=== PATIENT | female | born 1975 | race Caucasian/White ===

== ENCOUNTER 2025-04-06 19:17 | Emergency (ER) | payer MEDICAID, SELFPAY ==
--- OUTSIDE RECORDS SUMMARY | 2024-01-28 10:45 | XMS_ITS ---
Author Organization [facility] [place] Address [address] [address] Care Team Providers Care Daub Color Mixer Name Role Phone BEAR OSORIO Unavailable [phone] Encounters Encounter Location Date Provider Diagnosis [facility] [address] [place] [address] 01/28/2024 BEAR OSORIO Plan Of Treatment No Information Progress Notes * LETICIAVanessa SO ADOB: [birth year] (49 yo F)Acc No.[id number]:01/28/2024 Patient: Vanessa MENDOZA Provider: Rafiq OSORIO M.D., F.A.C.P. :1975 A ge:48 Y S ex:Female Date:01/28/2024 Address:[address] [place], [place] [id number] Subjective: * Chief Complaints: * * Medical History: Objective: * Vitals: Assessment: Plan: * Treatment: * * Electronic signature of YANETH OSORIO MD on 04/06/2025 at 08:05 PM EDT Sign off status: Pending * Provider: Rafiq OSORIO M.D., F.A.C.P. Date: 01/28/2024 Generated for Allan kirkpatrick/Lyndsey/eTransmitting on: 04/06/2025 08:05 PM EDT
--- OUTSIDE RECORDS SUMMARY | 2024-08-24 07:00 | XMS_ITS ---
Author Organization [facility] [place] Address [address] [place] [address] Care Team Providers Care Lower In Supervisor Name Role Phone LUIS GODINEZ Unavailable [phone] REASON FOR VISIT [facility] discharge Encounters Encounter Location Date Provider Diagnosis [facility] [address] [place] [address] 08/24/2024 LUIS GODINEZ Plan Of Treatment No Information Progress Notes * Vanessa LAI ADOB: [birth year] (49 yo F)Acc No.[id number]:08/24/2024 Progress Note Patient: Cherelle MENDOZAan Jose Angel Appointment Provider: Marian GODINEZ APRN :1975 A ge:48 Y S ex:Female Date:08/24/2024 Address:[address] [place], [place] [id number] Subjective: * Chief Complaints: * 1 . [facility] discharge. * Medical History: Objective: * Vitals: Assessment: Plan: * Treatment: * * Electronic signature of PAMELA GODINEZ APRN on 04/06/2025 at 08:05 PM EDT Sign off status: Pending * Appointment Provider: Marian GODINEZ APRN Date: 0 08/24/2024 Generated for Printing/Faxing/eTransmitting on: 0 04/06/2025 08:05 PM EDT
[2025-04-06 19:38] VITALS: BP 129/74; PULSE 86; RESP 20; TEMP 36.5; O2SAT 100; BMI 18.3
--- NOTE | 2025-04-06 19:52 | ECG_ITS ---
APPROVED REPORT Exam: Resting ECG HR:76 bpm ECG Measurements Heart Rate 76 AXES MS 157 P 84 QRSd 80 QRS 104 QT 371 T 66 QTc 402 Conclusion SINUS RHYTHM RIGHT AXIS DEVIATION [QRS AXIS > 100] ABNORMAL ECG UNCONFIRMED REPORT Normal sinus rhythm. No ST elevation or depression. QTc normal at 402 Electronically signed by : ABISAI MARLEY, 04/07/2025 00:55:50
--- NOTE | 2025-04-06 20:00 | PC.NURSE ---
attempt made in triage to straight stick patient for labwork. attempt failed.
--- OUTSIDE RECORDS SUMMARY | 2025-04-06 20:06 | XMS_ITS | Referral Summary ---
Author Organization [employer] ([place], [place], [place], [place]) Address [address] [place] [address] Care Team Providers Care Tailer In Name Role Phone [facility] Primary Care Provider Allergies Active Allergy Reactions Criticality Noted Date Comments Hydrocodone 03/09/2023 Patient tolerated morphine on 08/13/2024. Ibuprofen 04/15/2014 Medications No known medications Active Problems Problem Noted Date Diagnosed Date Chronic obstructive pulmonary disease 08/14/2024 History of drug abuse 08/14/2024 Breast cancer 08/14/2024 Abscess of right forearm 08/13/2024 Right arm pain 05/06/2023 Social History Tobacco Use Types Packs/Day Years Used Date Smoking Tobacco: Every Day Cigarettes 0.5 25 Smokeless Tobacco: Never Tobacco Cessation:Ready to Q uit: Not Asked; Counseling Given: Not Answered Alcohol Use Standard Drinks/Week Comments Never 0 (1 standard drink = 0.6 oz pur e alcohol) Utilities Answer Date Recorded In the past 12 months, has t he electric, gas, oil, or water company threatened to shut off services in your home? No 08/13/2024 Interpersonal Safety Answer Date Record ed How often does anyone, elmo ennis family and friends, physically hurt you? Never 08/13/2024 How often does anyone, elmo ennis family and friends, insult or talk down to you? Never 08/13/2024 How often does anyone, elmo ennis family and friends, threaten you with harm? Never 08/13/2024 How often does anyone, elmo ennis family and friends, scream or curse at you? Never 08/13/2024 Housing Stability Answer Date Recorded What is your living situation today? [facility] place to live 08/13/[address] you li ve. Do you have problems with any of the following? None of the above 08/13/2024 Food Insecurity Answer Date Recorded Within the past 12 months, y ou worried that your food would run out before you got money to buy more. Never true 08/13/2024 Within the past 12 months, t he food you bought just didn't last and you didn't have money to get more. Never true 08/13/2024 Transportation Needs Answer Date Record ed In the past 12 months, has l ack of reliable transportation kept you from medical appointments, meetings, work or from getting things needed for daily living? No 08/13/2024 Financial Resource Strain Answer Date R ecorded How hard is it for you to pa y for the very basics like food, housing, medical care, and heating? Would you say it is: Not hard at all 08/13/2024 Employment Answer Date Recorded Do you want help finding or keeping work or a job? I do not need or want help 08/13/2024 Family and Community Support Answer Sylvester e Recorded If for any reason you need h elp with day-to-day activities such as bathing, preparing meals, shopping, managing finances, etc., do you get the help you need? I get all the help I need 08/13/2024 Feeling Lonely or Isolated 0 08/13 Educational Attainment Answer Date Desmond rded Do you speak a language other than [place] at [facility]? No 08/13/2024 Do you want help with school or training? For example, starting or completing job training or getting a high school diploma, GED or equivalent. No 08/13/2024 Physical Activity Answer Date Recorded Number of minutes of exercise per week 0 08/13/2024 Self Management Answer Date Recorded Because of a physical, menta l, or emotional condition, do you have serious difficulty concentrating, remembering, or making decisions? (5 years or older) No 08/13/2024 Because of a physical, menta l, or emotional condition, do you have difficulty doing errands alone such as visiting a doctor's office or shopping? (15 years or older) No 08/13/2024 Substance Use Answer Date Recorded How many times in the past y ear have you used prescription drugs for non-medical reasons? Daily or Almost Daily 08/13/2024 How many times in the past y ear have you used illegal drugs? Daily or Almost Daily 08/13/2024 Mental Health Answer Date Recorded Calculation of above two rows 0 Comments Unknown Sex and Gender Information Value Date Recorded Sex Assigned at Not on file Legal Sex Female 6:48 PM CDT Gender Identity Not on file Sexual Orientation Not on file Last Filed Vital Signs Vital Sign Reading Time Taken Comments Blood Pressure 129/84 08/14/2024 11:35 AM EST Pulse 89 08/14/2024 11:35 AM EST Temperature 36.8 C (98.2 F) 08/14/2024 11:35 AM EST Respiratory Rate 18 08/14/2024 11:35 AM EST Oxygen Saturation 96% 08/14/2024 11:35 AM EST Inhaled Oxygen Concentration - - Weight 55.3 kg (122 lb) 08/13/2024 1:38 PM EST Height 162.6 cm (5' 4 ) 08/13/2024 1:38 PM EST Body Mass Index 20.94 08/13/2024 1:38 PM EST Plan of Treatment Not on file Insurance [employer] [facility] [place] [address] Advance Directives For more information, please contact: [phone] * Full Code (Latest Code Status on File) Date Activated Date Inactivated Comments 08/13/2024 4:16 PM 08/14/2024 2:25 PM Care Teams Tailer In Relationship Specialty Start Date End Date [facility] [place] [address] PCP - General 08/13/24
--- OUTSIDE RECORDS SUMMARY | 2025-04-06 20:06 | XMS_ITS ---
Author Organization [facility] Address [address] [place], [place] [id number] Care Team Providers Care Cascara Bark Cutter Name Role Phone Joyce Arambula MD Primary Care Provider [phone] Max Joiner RN Unavailable Unavailable Hepatitis C Program Status:Active (Active) Start date:10/09/2024 Enrollment date:10/09/2024 Enrollment reason:HCV Continued Care and Services Coordination
--- OUTSIDE RECORDS SUMMARY | 2025-04-06 20:06 | XMS_ITS | Clinical Summary ---
Author Organization Healthcare Address [address] [place] [address] Care Team Providers Care Fiberglass Auto Body Repairer Name Role Phone Joyce Arambula MD Primary Care Provider [phone] Max Joiner RN Unavailable Unavailable Allergies Active Allergy Reactions Criticality Noted Date Comments Acetaminophen Other - please document in the comment field Low 10/13/2024 Reports shortness of breath and anaphylaxis but had tylenol multiple times during admission w/o rxn Hydrocodone Other - please document in the comment field Low 03/09/2023 Patient tolerated morphine on 08/13/2024. Hydrocodone-Acetaminoph en Shortness of breath High 06/02/2007 pt stated she had breathing problems Ibuprofen Other - please document in the comment field Low 04/15/2014 Naproxen Other - please document in the comment field Low 10/13/2024 According to Patient facial edema and difficulty getting her breath Of note - had naproxen during admission w/o reaction. Medications naloxone (Narcan) 4 mg/0.1 mL nasal spray 1. Give 1 spray in nostril for no/slow breathing or cannot wake after opioid use 2. Call 911 3. Repeat in other nostril if symptoms continue 2 each 11 5 Active folic acid (Folvite) 1 MG tablet Take 1 tablet (1 mg) by mouth daily. 30 tablet 5 Active gabapentin (Neurontin) 100 MG capsule Take 2 capsules (200 mg) by mouth in the morning and 2 capsules (200 mg) in the evening and 2 capsules (200 mg) before bedtime. 10 capsule 5 Active ondansetron ODT (Zofran-ODT) 4 MG disintegrating tablet Take 1 tablet (4 mg) by mouth every 6 hours as needed for nausea or vomiting. 20 tablet 5 Active thiamine (Vitamin B-1) 100 MG tablet Take 1 tablet (100 mg) by mouth daily. 30 tablet 5 Active sofosbuvir-velpata svir (Epclusa) 400-100 MG tabletIndications: Chronic hepatitis C without hepatic coma (CMS/HCC) Take 1 tablet by mouth daily. 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 No 10/11/2024 Within the last year, have y ou been humiliated or emotionally abused in other ways by your partner or ex-partner? No Within the last year, have y ou been kicked, hit, slapped, or otherwise physically hurt by your partner or ex-partner? No 10/11/2024 Within the last year, have y ou been raped or forced to have any kind of sexual activity by your partner or ex-partner? No 10/11/2024 Overall Financial Resource Strain (CARDIA) Answe r Date Recorded How hard is it for you to pa y for the very basics like food, housing, medical care, and heating? Somewhat hard 10/11/2024 Hunger Vital Sign Answer Date Recorded Within the past 12 months, y ou worried that your food would run out before you got the money to buy more. Never true 10/12/19 25 Within the past 12 months, t he food you bought just didn't last and you didn't have money to get more. Never true 10/11/2024 PRAPARE - Transportation Answer Date Re corded In the past 12 months, has l ack of transportation kept you from medical appointments or from getting medications? Yes 10/02 In the past 12 months, has l ack of transportation kept you from meetings, work, or from getting things needed for daily living? Yes 10/11/2024 Housing Stability Vital Sign Answer Sylvester e Recorded In the last 12 months, was t here a time when you were not able to pay the mortgage or rent on time? Yes 10/11/2024 In the past 12 months, how m any times have you moved where you were living? 1 10/11/2024 At any time in the past 12 m [facility], were you homeless or living in a penitentiary (including now)? No 10/11/2024 Utilities Answer Date Recorded In the past 12 months has th e electric, gas, oil, or water company threatened to shut off services in your home? No 10/11/2024 Comments No Sex and Gender Information Value Date Recorded Sex Assigned at Not on file Legal Sex Female 8:35 PM EDT Gender Identity Not on file Sexual Orientation Not on file Last Filed Vital Signs Vital Sign Reading Time Taken Comments Blood Pressure 113/74 10/27/2024 3:13 PM EDT Pulse 88 10/27/2024 3:13 PM EDT Temperature 36.7 C (98 F) 10/18/2024 11:15 AM EDT Respiratory Rate 18 10/18/2024 11:15 AM EDT Oxygen Saturation 99% 10/27/2024 3:13 PM EDT Inhaled Oxygen Concentration - - Weight 59 kg (130 lb) 10/27/2024 3:13 PM EDT Height 165.1 cm (5' 5 ) 10/27/2024 3:13 PM EDT Body Mass Index 21.63 10/27/2024 3:13 PM EDT Plan of Treatment Upcoming Encounters Date Type Department Care Team (Late st Contact Info) Description 04/11/2025 12:40 PM EDT [facility] Visit [facility] [address] [place] [phone] Health Maintenance Due Date Last Done Comments [facility]-Depression Screening 1975 [facility]-/Child/Adol SDOH Screenings 1975 [facility]-Hepatitis A Vaccines (1 of 2 - Risk 2-dose series) 1993 [facility]-Hepatitis B Vaccines (1 of 3 - 19+ 3-dose series) 1993 [facility]-Pneumococcal Vaccine: 50 + Years (2 of 2 - PCV) 08/20/2001 08/20/2000 CT Colonography 2019 Colonoscopy 2019 FIT-DNA 2019 FIT 2019 FOBT 2019 Sigmoidoscopy 2019 [facility]-Colorectal Cancer Screening 2019 [facility]-DTaP,Tdap,and Td Vaccine s (2 - Td or Tdap) 01/24/2024 01/23/2014 [id number] Vaccine (1 - 20 24-25 season) 2024 [facility]-Lung Cancer Screening 2024 [facility]-Zoster Vaccines (1 of 2) 2024 [facility]-Influenza Vaccine (#1) 2025 [facility]- SDOH Screenings 04/13/2025 [facility]-Adult SDOH Screenings 04/13/2025 10/11/2024 [facility]-Cervical Cancer Screening Discontinued [facility]-HPV/Cotest Discontinued 08/16/1996 [facility]-Pap Smear Discontinued 08/16/1996 [facility]-HIV Screening Completed 10/09/2024 HPV Vaccines Aged Out No longer eligi ble based on patient's age to complete this topic [facility]-HIB Vaccines Aged Out No longer e ligible based on patient's age to complete this topic [facility]-IPV Vaccines Aged Out No longer e ligible based on patient's age to complete this topic [facility]-Rotavirus Vaccines Aged Out No lo nger eligible based on patient's age to complete this topic Goals Goal Patient Goal Type Associated Problems Recent Progress Patient-Stated? Author Patient will demonstrate correct performance of HEP to increase wrist ROM within 1 therapy visits. Occupational Therapy No Gagan Anderson Procedures Procedure Name Priority Date/Time Associated Diagnosis Comments CBC W/O DIFFERENTIAL Routine 03/29/2025 12:44 PM EDT Chronic hepatitis C without hepatic coma (CMS/HCC) COMPREHENSIVE METABOLIC PANEL, PLASMA Routine 03/29/2025 12:44 PM EDT Chronic hepatitis C without hepatic coma (CMS/HCC) HEPATITIS B VIRUS (HBV) QUANTITATIVE PCR Routine 03/29/2025 12:44 PM EDT Chronic hepatitis C without hepatic coma (CMS/HCC) HEPATITIS C VIRUS (HCV) QUANTITATIVE PCR Routine 03/29/2025 12:44 PM EDT Chronic hepatitis C without hepatic coma (CMS/HCC) PROTHROMBIN TIME(PT) / INR Routine 03/29/2025 12:44 PM EDT Chronic hepatitis C without hepatic coma (CMS/HCC) ED HIV 1/2 ANTIBODY/ANTIGEN SCREEN WITH REFLEX TO HIV I/II DIFFERENTIATION STAT 10/09/2024 1:46 PM EST CYTO DATA CONVERSION Routine 08/16/1996 12:00 AM EST from Last 3 Months or Most Recently Relevant to Health Maintenance Results * Hepatitis B Virus (HBV) Quantitative PCR (03/29/2025 12:44 PM EDT) Hepatitis B Virus (HBV) Quantitative Interpretation Not Detected Not Detected 03/31/2025 7:33 AM EDT [facility] Blood Venous blood specimen / Unknown Venipuncture / Unknown 03/29/2025 12:44 PM EDT 03/29/2025 12:45 PM EDT Narrative [facility] - 03/31/2025 7:33 AM EDT The [employer] M2000 HBV Assay is a Real Time in vitro nucleic acid amplification of Hepatitis B Virus (HBV) DNA in human serum in HBV infected individuals. It is intended to quantify HBV in patients who are infected with this virus. The dynamic range for this test is 1.0 to 9.0 log10 and/or 10 to 1,000,000,000 IU/mL. The limit of detection (LOD) for this assay is 10 IU/mL. This assay is FDA approved for clinical use. us Missael Child APRN, TORO LAB BLOOD ORDERABLES F inal Result Performing Organization Address [facility] Co de Phone Number [facility] [address] [place] [address] * Hepatitis C Virus (HCV) Quantitative PCR (03/29/2025 12:44 PM EDT) Pathologist [facility] Hepatitis C Virus (HCV) Quantitative Interpretation Not Detected Not Detected. 03/31/2025 7:15 AM EDT [facility] Blood Venous blood specimen / Unknown Venipuncture / Unknown 03/29/2025 12:44 PM EDT 03/29/2025 12:45 PM EDT Narrative [facility] - 03/31/2025 7:15 AM EDT The [employer] M2000 HCV test is a Real Time in vitro nucleic acid amplification test for the quantitation of Hepatitis C Viral (HCV) RNA in human serum in HCV-infected individuals. It is intended for use as an aid in the management of HCV-infected individuals undergoing anti-viral therapy. The dynamic range for this test is log10 = 1.08 to 8.00 and/or 12 to 100,000,000 IU/mL. The limit of detection (LOD) for this assay is 12 IU/mL and the limit of quantitation (LOQ) is 12 IU/mL. This assay is FDA approved for clinical use. Missael Child APRN, DNP LAB BLOOD ORDERABLES F inal Result Performing Organization Address [facility] Co de Phone Number [facility] [address] [place] [address] * Prothrombin Time/INR (03/29/2025 12:44 PM EDT) Pathologist [facility] Prothrombin Time 13.3 12.0 - 14.3 sec LAB COAGULATION METHOD 03/29/2025 2:30 PM EDT [facility] INR 1.0 0.9 - 1.1 LAB COAGULATION METHOD 03/29/2025 2:30 PM EDT [facility] Blood Venous blood specimen / Unknown Venipuncture / Unknown 03/29/2025 12:44 PM EDT 03/29/2025 12:45 PM EDT Narrative [facility] - 03/29/2025 2:30 PM EDT OPTIMAL INR RANGES FOR PATIENT ON ORAL ANTICOAGULANT THERAPY Prevention of venous thromboembolism INR 2.0 to 3.0 In patients with heart disease: Atrial fibrillation INR 2.0 to 3.0 Valvular heart disease INR 2.0 to 3.0 Tissue heart valves INR 2.0 to 3.0 Mechanical prosthetic valves INR 2.5 to 3.5 Prevention of recurrent PR INR 2.5 to 3.5 us Missael Child BAKE ROOM WORKER, DNP LAB BLOOD ORDERABLES F inal Result [facility] [address] [place] [address] * CBC W/O Differential (03/29/2025 12:44 PM EDT) [facility] WBC Count 7.10 3.70 - 10.30 10*3/uL LAB HEMATOLOGY METHOD 03/29/2025 2:22 PM EDT [facility] RBC Count 4.98 3.90 - 5.20 10*6/uL LAB HEMATOLOGY METHOD 03/29/2025 2:22 PM EDT [facility] HGB 14.3 11.2 - 15.7 g/dL LAB HEMATOLOGY METHOD 03/29/2025 2:22 PM EDT [facility] HCT 44.4 34.0 - 45.0 % LAB HEMATOLOGY METHOD 03/29/2025 2:22 PM EDT [facility] Platelet Count 277 155 - 369 10*3/uL LAB HEMATOLOGY METHOD 03/29/2025 2:22 PM EDT [facility] MCV 89 79 - 98 fL LAB HEMATOLOGY METHOD 03/29/2025 2:22 PM EDT [facility] MCH 28.7 26.0 - 32.0 pg LAB HEMATOLOGY METHOD 03/29/2025 2:22 PM EDT [facility] MCHC 32.2 30.7 - 35.5 g/dL LAB HEMATOLOGY METHOD 03/29/2025 2:22 PM EDT [facility] RDW 13.8 11.5 - 14.5 % LAB HEMATOLOGY METHOD 03/29/2025 2:22 PM EDT [facility] MPV 10.6 8.8 - 12.5 fL LAB HEMATOLOGY METHOD 03/29/2025 2:22 PM EDT [facility] nRBC 0.0 <=0.0 per 100 WBCs LAB HEMATOLOGY METHOD 03/29/2025 2:22 PM EDT [facility] Blood Venous blood specimen / Unknown Venipuncture / Unknown 03/29/2025 12:44 PM EDT 03/29/2025 12:45 PM EDT us Missael Child BAKE ROOM WORKER, DNP LAB BLOOD ORDERABLES F inal Result [facility] [address] [place] [address] * (ABNORMAL) Comprehensive Metabolic Panel, Plasma (03/29/2025 12:44 PM EDT) Glucose, Plasma 107(H) 74 - 99 mg/dL 03/29/2025 2:32 PM EDT [facility] BUN, Plasma 11 7 - 21 mg/dL 03/29/2025 2:32 PM EDT [facility] Creatinine, Plasma 0.69 0.60 - 1.10 mg/dL 03/29/2025 2:32 PM EDT [facility] BUN/Creatinine Ratio 16 03/29/2025 2:32 PM EDT [facility] Sodium, Plasma 144 136 - 145 mmol/L 03/29/2025 2:32 PM EDT [facility] Potassium, Plasma 4.2 3.6 - 4.9 mmol/L 03/29/2025 2:32 PM EDT [facility] Chloride, Plasma 105 97 - 107 mmol/L 03/29/2025 2:32 PM EDT [facility] CO2, Plasma 31(H) 22 - 29 mmol/L 03/29/2025 2:32 PM EDT [facility] Anion Gap 8 6 - 16 mmol/L 03/29/2025 2:32 PM EDT [facility] Total Calcium, Plasma 9.9 8.9 - 10.2 mg/dL 03/29/2025 2:32 PM EDT [facility] Total Protein 6.8 6.3 - 7.9 g/dL 03/29/2025 2:32 PM EDT [facility] Albumin, Plasma 4.1 3.5 - 5.2 g/dL 03/29/2025 2:32 PM EDT [facility] AST, Plasma 21 10 - 35 U/L 03/29/2025 2:32 PM EDT [facility] ALT, Plasma 15 10 - 35 U/L 03/29/2025 2:32 PM EDT [facility] Alkaline Phosphatase, Plasma 78 35 - 104 U/L 03/29/2025 2:32 PM EDT [facility] Total Bilirubin, Plasma 0.2 0.2 - 1.1 mg/dL 03/29/2025 2:32 PM EDT [facility] eGFRcr 105.9 mL/min/1.7 3m*2 03/29/2025 2:32 PM EDT [facility] Comment:Reported eGFRcr in m L/min/1.73m2 is based the CKD-EPI 2020 equation that does not use a race coefficient. Blood Venous blood specimen / Unknown Venipuncture / Unknown 03/29/2025 12:44 PM EDT 03/29/2025 12:45 PM EDT us Missael Child APRN, DNP LAB BLOOD ORDERABLES F inal Result [facility] [address] [place] [address] * ED HIV 1/2 Antibody/Antigen Screen w/Reflex to HIV 1/2 Differentiation (10/09/2024 1:46 PM EST) HIV 1 & 2 Antibody/Antigen Screen Non Reactive Non Reactive 10/09/2024 2:49 PM EST [facility] Comment:Screening for HIV 1 & 2 antibodies, and P24 antigen is NONREACTIVE. No confirmatory testing is required. Blood Venous blood specimen / Unknown Venipuncture / Unknown 10/09/2024 1:46 PM EST 10/09/2024 2:01 PM EST us Zina Grimm MD LAB BLOOD ORDERABLES Final R esult [facility] [address] [place] [address] * Cytology (08/16/1996 12:00 AM EST) 08/16/1996 08/18/1996 Narrative [facility] - 08/19/1996 12:00 AM EST [facility] MR #: [id number] [facility] [address] [place], [place] [address] 1975 (Age: 20) FW Collect Date: 08/16/1996 00:00 Receipt Date: 08/18/1996 00:00 Page 1 DEPARTMENT OF PATHOLOGY AND LABORATORY MEDICINE CYTOPATHOLOGY REPORT Email: [email or web address] * Converted Case * This report may not match the original report format ATTENDING MD/Practitioner: Dillon Lim MD Service: Location: Reported: 08/19/1996 00:00 Collected: 08/16/1996 00:00 INTERPRETATION CERVICAL SCRAPE/ENDOCERVICAL BRUSH PREDOMINANCE OF COCCOBACILLI CONSISTENT WITH SHIFT IN VAGINAL KEM. NO DYSPLASTIC OR MALIGNANT CELLS SEEN. SATISFACTORY FOR INTERPRETATION. Electronically Signed Out By Mery Velez INDIRA Rich (ASCP) Roshan Kaur MD Cervical cytology is a screening test primarily for squamous cancers and precursors and has associated false negative and positive results. New technologies such as liquid based sampling may decrease but will not eliminate all false negative results. Regular screening and follow-up of unexplained clinical signs and symptoms are recommended to minimize false negative results. Please see the ASCCP website (www.asccp.org) for followup recommendations. If HPV testing was requested, correlation with the results is suggested (please call Microbiology at [phone] for results). CLINICAL INFORMATION: Menstrual History: {Not Provided} Date of Last Menstrual Period: {Not Provided} SPECIMEN DESCRIPTION: A: CERVICAL/VAGINAL SMEAR, PAP ICD: F: {Not Entered} SNOMED CODES: 1; [id number] [id number] In cases where a pathologist has signed out the report, the service has been rendered in part by a resident. The signing pathologist has performed and is responsible for the reported pathologic evaluation. us Historical Provider LAB PATHOLOGY ORDERABLES Fin al Result [facility] from Last 3 Months or Most Recently Relevant to Health Maintenance Insurance [employer] [place] Advance Directives * Full Code (Latest Code Status on File) Date Activated Date Inactivated Comments 10/09/2024 6:29 PM 10/18/2024 4:13 PM Question Answer Comments Patient has decision-making capacity? Yes Care Teams Fiberglass Auto Body Repairer Relationship Specialty Start Date End Date Joyce Arambula MD [address] [place] [address] PCP - General 12/15/20 Max Joiner, RN ```````````````````````CH - PACU - MAJOR, PAV A Registered Nurse 10/11/24
--- OUTSIDE RECORDS SUMMARY | 2025-04-06 20:06 | XMS_ITS | Encounter Summary ---
Author Organization Healthcare Address [address] [place] [address] Care Team Providers Care Poultry Veterinarian Name Role Phone Joyce Arambula MD Primary Care Provider [phone] Max Joiner RN Unavailable Unavailable Encounter Details Date Type Department Care Team (Latest Contact Info) Description 03/29/2025 Travel Social History Tobacco Use Types Packs/Day Years Used Date Smoking Tobacco: Every Day Cigarettes 1 30.7 Started: 1994 Alcohol Use Standard Drinks/Week Comments Yes 0 [...] any time in the past 12 m [facility], were you homeless or living in a residential (including now)? No 10/11/2024 Utilities Answer Date Recorded In the past 12 months has th e electric, gas, oil, or water company threatened to shut off services in your home? No 10/11/2024 Comments No Sex and Gender Information Value Date Recorded Sex Assigned at Not on file Legal Sex Female 8:35 PM EDT Gender Identity Not on file Sexual Orientation Not on file documented as of this encounter Plan of Treatment Upcoming Encounters Date Type Department Care Team (Late st Contact Info) Description 04/11/2025 12:40 PM EDT Office Visit [facility] Medicine Specialties [address] [place] [phone] documented as of this encounter Goals Goal Patient Goal Type Associated Problems Recent Progress Patient-Stated? Author Patient will demonstrate correct performance of HEP to increase wrist ROM within 1 therapy visits. Occupational Therapy No Gagan Anderson documented as of this encounter Visit Diagnoses Not on filedocumented in this encounter Additional Health Concerns Assessment Noted Time A Body Mass Index follow-up plan has been documented for the patient 10/27/2024 5:06 PM EDT documented as of this encounter Care Teams Poultry Veterinarian Relationship Specialty Start Date End Date Joyce Arambula MD [address] [place] [address] PCP - General 12/15/20 Max Joiner RN ```````````````````````CH - PACU - MAJOR, CAM Walter Registered Nurse 10/11/24 documented as of this encounter
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
--- OUTSIDE RECORDS SUMMARY | 2025-04-06 20:06 | XMS_ITS | Patient Health Record ---
Author Organization [facility] [place] Address [address] [place] [address] Care Team Providers Care Building And Construction Manager Name Role Phone LUIS GODINEZ Unavailable [phone] Allergies No Known Allergies Reason For Referral No Information Medications Medication SIG (Take, Route, Frequency, Duration) Notes Start Date End Date Status Propranolol HCl 10 MG 1 tablet Orally Th ree times a day; Duration: 5 days 01/23/2024 Active Ondansetron 4 MG 1 tablet on the tong ue and allow to dissolve Orally twice a day; Duration: 5 days 01/23/2024 Active Buprenorphine HCl-Naloxone HCl 8-2 MG 2 tablets dose as directed Sublingual daily; Duration: 5 days 01/23/2024 Active Promethazine HCl 25 MG 1 tablet as neede d Orally every 12 hours for nausea; Duration: 2 days 01/21/2024 Active Social History Tobacco Use: Social History Observation Description Date Details (start date - stop date) Current Smoker NA - NA Tobacco Use/Smoking Question Answer Notes Are you a current every day smoker Alcohol Screen (Audit-C) Question Answer Notes Did you have a drink containing alcohol in the p ast year? 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 Problem Personal history of primary malignant neoplasm of breast (839968639) History of breast cancer in female (Z85.3) Active confirmed Problem Opioid abuse with withdrawal (F11.13) Active confirmed Plan Of Treatment No Information Insurance Providers Payer Name Payer Address Payer Phone Subscriber Number Group Number Insured Name Patient Relationship to Insured Coverage Start Date Coverage End Date [employer] [address] [place] [address] [id number] Vanessa Chakraborty Self - patient is the insured Medical (General) History Medical History History ICD Code drug abuse heroin Surgical History Surgery Date(Month/Year) leg surgery 2006 hysterectomy 2008 left breast removed 2016
--- OUTSIDE RECORDS SUMMARY | 2025-04-06 20:06 | XMS_ITS | Clinical Summary ---
Author Organization [employer] ([place], [place], [place], [place]) Address [address] [place] [address] Care Team Providers Care Global Program Manager Name Role Phone [facility], Find-A-Doc Primary Care Provider Allergies [...] the past 12 months, has t he Reactivity, gas, oil, or water Shake threatened to shut off services in your [...] your living situation today? I have a [facility] place to live 08/13/2024 Think about [...] Do you speak a language other than [place]an at [facility]? No 08/13/2024 Do you want help [...] 08/13/2024 1:38 PM EST Plan of Treatment Health Maintenance Due Date Last Done Comments CT Colonography 1974 Colonoscopy 1975 Colorectal Cancer Screening 1975 FOBT/FIT 1974 Fit-DNA (Cologuard) 1974 Sigmoidoscopy 1974 Depression Screening (12+) 1986 Tobacco Cessation Counseling and Screening (12+) 09/18 HIV Screening 1989 Hepatitis C Screening 1992 Pap Smear 1995 Pneumococcal 50+ years (2 of 2 - PCV) 08/20/2001 Breast Cancer Screening 2014 Lipid Panel 2019 DTAP/TDAP/TD VACCINES (2 - Td or Tdap) 01/24/2024 COVID-19 VACCINE (1 - season) 2024 Shingles Vaccine (Zoster) (1 of 2) 2024 Influenza Vaccine (#1) 2025 Insurance [employer] SERINA MELGOZA [facility] Advance Directives For more information, please contact: [phone] * Full Code (Latest Code Status on File) Date Activated Date Inactivated Comments 08/13/2024 4:16 PM 08/14/2024 2:25 PM Care Teams Global Program Manager Relationship Specialty Start Date End Date [facility], Find-A-Doc [facility] Connection Find-a-Doc [place] [phone] PCP - General 08/13/24
--- NOTE | 2025-04-06 20:57 | CT_ITS ---
PROCEDURE INFORMATION: Exam: CTA Chest With Contrast Exam date and time: 04/06/2025 10:40 PM Age: 49 years old Clinical indication: Shortness of breath and other: Syncope; Additional info: Syncope, shortness of breath TECHNIQUE: Imaging protocol: Computed tomographic angiography of the chest with contrast. Exam focused on the arteries. 3D rendering (Not supervised by radiologist): MIP and/or 3D reconstructed images were created by the technologist. Radiation optimization: All CT scans at this facility use at least one of these dose optimization techniques: automated exposure control; mA and/or kV adjustment per patient size (includes targeted exams where dose is matched to clinical indication); or iterative reconstruction. Contrast material: ISO; Contrast volume: 80 ml; Contrast route: INTRAVENOUS (IV); COMPARISON: No relevant prior studies available. FINDINGS: Pulmonary arteries: No central or segmental pulmonary arterial emboli identified. Aorta: Unremarkable. No aortic aneurysm. No aortic dissection. Thyroid: Nonvisualized right thyroid gland. Lungs: Patchy air trapping. No consolidation. No masses. Pleural spaces: Unremarkable. No pneumothorax. No pleural effusion. Heart: Unremarkable. No cardiomegaly. No pericardial effusion. Lymph nodes: Unremarkable. No enlarged lymph nodes. Bones/joints: Unremarkable. No acute fracture. Soft tissues: Unremarkable. IMPRESSION: 1. No central or segmental pulmonary arterial emboli identified. 2. Patchy air trapping.
--- NOTE | 2025-04-06 20:57 | CT_ITS ---
PROCEDURE INFORMATION: Exam: CT Head Without Contrast Exam date and time: 04/06/2025 10:05 PM Age: 49 years old Clinical indication: Pain; Headache; Additional info: Headache, history of breast cancer, mets? TECHNIQUE: Imaging protocol: Computed tomography of the head without contrast. Radiation optimization: All CT scans at this facility use at least one of these dose optimization techniques: automated exposure control; mA and/or kV adjustment per patient size (includes targeted exams where dose is matched to clinical indication); or iterative reconstruction. COMPARISON: No relevant prior studies available. FINDINGS: Brain: No hemorrhage. Unremarkable white matter. No mass effect. Cerebral ventricles: No ventriculomegaly. Paranasal sinuses: Visualized sinuses are unremarkable. No fluid levels. Mastoid air cells: Visualized mastoid air cells are well aerated. Bones: Unremarkable. No acute fracture. Soft tissues: Unremarkable. IMPRESSION: No acute intracranial abnormality.
--- NOTE | 2025-04-06 21:00 | [facility].EDGENADL ---
Discharge Plan Disposition Patient Disposition: Home, Self-Care Condition: Good Prescriptions Prescriptions: New prednisone 20 mg tablet 40 mg PO DAILY 3 Days Qty: 6 0RF azithromycin 250 mg tablet See Rx Instructions .ROUTE .COMPLEX Qty: 6 0RF Rx Instructions: For 250 mg dose pack: take 500 mg today (day 1), then 250 mg for 4 days (days 2-5) albuterol sulfate [Ventolin HFA] 90 mcg/actuation HFA aerosol inhaler 2 inh inhalation Q6H PRN (Reason: shortness of breath or wheezing) Qty: 6.7 0RF ondansetron 4 mg tablet,disintegrating 4 mg PO Q6H PRN (Reason: nausea and vomiting) Qty: 10 0RF Referrals Follow up/Referrals: Gagan Ruiz MD [Staff Physician, Cardiology] - See instructions Provider,MD Jaswinder [Primary Care Provider, Medical] - See instructions Activity Restrictions/Add. Instructions Additional Instructions/Restrictions: Take the prescribed medications as directed. Wear the Holter monitor for 48 hours. You are being referred to Dr. Ruiz with the cardiology team for follow-up regarding the results of your Holter monitor testing. Call his office tomorrow to schedule an appointment. Continue to hydrate well by drinking plenty of fluids. If you develop any new or worsening symptoms, or if you become concerned for your health for any reason, return to the emergency department for evaluation. Clinical Impressions Clinical Impression: Syncope, Heart palpitations, COPD exacerbation Print Language Print Language: Japanese Discharge ED Provider: Vladimir Bocanegra General Adult HPI <Vladimir Bocanegra MD - Last Filed: 04/07/25 00:44> General Chief complaint: Dizziness Stated complaint: SOA, lightheaded Time Seen by Provider: 04/06/25 20:45 Mode of Arrival: Ambulatory Source of Information: Patient Description of Symptoms (Recalled from ER Triage Doc. by RN): patient presents to the ED for complaints of worsening dizziness thats been going on for 4 months now. Dominga states she gets black specks in her vision and feels like shes going to pass out all the time but never fully loses consciousness. History of Present Illness HPI narrative: Vanessa Chakraborty is a 49y female with a history of COPD, previous breast cancer status post left mastectomy and oral chemotherapy back in 2018, migraines who presents to the emergency department for complaints of syncopal episode. Patient states that earlier today, she became short of breath and passed out in her yard. She states that she woke up with her daughter standing over her. She denies hitting her head. She does state that she deals with chronic migraine headaches and currently has a headache. She denies any chest pain but does report some shortness of breath. She states that she does snort heroin but denies any IV drug use. She states that she has had chills but no objective fevers. She does state that recently she feels like her heart has been fluttering. Related Data Previous Rx's ?Medication ?Instructions ?Recorded albuterol sulfate 90 mcg/actuation 2 inh inhalation Q6H PRN shortness 04/07/25 aerosol inhaler (Ventolin HFA) of breath or wheezing #6.7 grams azithromycin 250 mg tablet See Rx Instructions PO .COMPLEX #6 04/07/25 tabs ondansetron 4 mg disintegrating 4 mg PO Q6H PRN nausea and 04/07/25 tablet vomiting #10 tabs prednisone 20 mg tablet 40 mg (2 x 20 mg) PO DAILY 3 days 04/07/25 #6 tabs Allergies Allergy/AdvReac Type Severity Reaction Status Date / Time hydrocodone Allergy Difficulty Verified 04/06/25 19:50 Breathing ibuprofen Allergy Difficulty Verified 04/06/25 19:50 Breathing paroxetine (From Paxil) Allergy Difficulty Verified 04/06/25 19:50 Breathing PFSH <Vladimir Bocanegra MD - Last Filed: 04/07/25 00:44> PFSH Disclaimer: The information contained in this section may have been updated after the patient was seen, as this information can be updated by other users. Social History (Updated 04/07/25 @ 00:42 by Vladimir Bocanegra MD) Smoking Status: Current every day smoker alcohol intake: never current occupational status: employed Travel in the last 8 weeks?: None Have you lived/traveled outside [place] in past 30 days?: No Contact w/someone who lives/traveled outside US past 30 days?: No Exposure to someone with infectious disease in past 14 days?: No Do you have a fever (greater than 100.4 F or 38 C)?: No Have you tested positive for COVID-19?: No Exposed to someone with COVID-19 in past 14 days?: No Do you have a sore throat?: No Do you have a cough?: No Do you have any weakness?: No Do you have any diarrhea?: No Are you experiencing any unusual bleeding?: No Do you have any muscle aches/pain?: No Do you have any abdominal pain?: No Are you experiencing loss of taste or smell?: No <Vladimir Bocanegra MD - Last Filed: 04/07/25 00:44> ROS Obtained: Yes Systems reviewed as appropriate & no additional complaints except as documented Physical Exam <Vladimir Bocanegra MD - Last Filed: 04/07/25 00:44> General General appearance: alert and in no apparent distress Comment: thin Head Head exam: atraumatic Eye Eye exam: Present normal appearance ENT ENT exam: Present normal external ear exam Neck Neck exam: Present full ROM Chest Chest inspection: Present symmetric chest wall rise Respiratory Respiratory exam: Present wheezes (mild end expiratory wheeze); Absent normal lung sounds bilaterally or respiratory distress Cardiovascular Cardiovascular exam: Present regular rate and normal rhythm Abdominal Exam Abdominal exam: Present soft; Absent tenderness or guarding Extremities Exam Extremities exam: Present normal inspection Back Exam Back exam: Present normal inspection Neurological Exam Neurological exam: Present alert and oriented X3 Psychiatric Psychiatric exam: Present normal affect Skin Skin exam: Present warm and dry Medical Decision Making <Vladimir Bocanegra MD - Last Filed: 04/07/25 00:44> Medical Records Screening: Per USPSTF and CDC recommendations, given the prevalence of disease in our region, it is our hospital?s policy to screen for HIV and viral Hepatitis for all patients aged 18 and over and those with ongoing risk factors. Fam Inquiry Pt receiving controlled substance: No Vital Signs: 04/06/25 19:38 04/06/25 23:21 04/06/25 23:40 Temperature 97.7 F Temperature Source Temporal Artery Scan Pulse Rate 89 Pulse Rate [Right Radial] 86 Respiratory Rate 20 Blood Pressure 139/96 H 142/82 H Blood Pressure [Left Arm] 129/74 Blood Pressure Mean 116 Blood Pressure Mean [Left Arm] 92 Blood Pressure Source [Left Arm] Manual Cuff/ Doppler Blood Pressure Position Blood Pressure Position [Left Arm] Sitting 02 Sat by Pulse Oximetry 100 96 94 L Oxygen Delivery Method Room Air 04/07/25 00:00 04/07/25 00:20 04/07/25 00:40 Temperature Temperature Source Pulse Rate 87 92 H 89 Pulse Rate [Right Radial] Respiratory Rate Blood Pressure 124/88 132/95 H 124/87 Blood Pressure [Left Arm] Blood Pressure Mean Blood Pressure Mean [Left Arm] Blood Pressure Source [Left Arm] Blood Pressure Position Blood Pressure Position [Left Arm] 02 Sat by Pulse Oximetry 96 95 96 Oxygen Delivery Method 04/07/25 01:20 Temperature 97.7 F Temperature Source Oral Pulse Rate 89 Pulse Rate [Right Radial] Respiratory Rate 20 Blood Pressure 124/87 Blood Pressure [Left Arm] Blood Pressure Mean Blood Pressure Mean [Left Arm] Blood Pressure Source [Left Arm] Blood Pressure Position Sitting Blood Pressure Position [Left Arm] 02 Sat by Pulse Oximetry Oxygen Delivery Method Room Air Lab Data Lab Results 04/06/25 21:30: WBC 9.6, RBC 5.54 H, Hgb 15.7, Hct 49.2 H, MCV 88.8, MCH 28.3, MCHC 31.9, RDW 13.4, Plt Count 292, MPV 9.8, Neut % (Auto) 71.9, Lymph % (Auto) 20.8, [place] % (Auto) 3.9, Eos % (Auto) 2.7, Baso % (Auto) 0.5, Neut # (Auto) 6.9, Lymph # (Auto) 2.0, [place] # (Auto) 0.4, Eos # (Auto) 0.3, Baso # (Auto) 0.1, VBG pH 7.24 L, VBG pCO2 63.6 H, VBG pO2 32.1, VBG HCO3 26.5, VBG Total CO2 28.4 H, VBG O2 Saturation 60.9, VBG Base Excess -1.0, VBG Lactic Acid 3.0 H, Sodium 142, Potassium 3.9, Chloride 103, Carbon Dioxide 29, Anion Gap 13.9, BUN 15, Creatinine 0.70, Estimated Creat Clear 76, Estimated GFR 89, Est GFR ( Amer) 107, Glucose 156 H, Calcium 10.6 H, Magnesium 2.0, Total Bilirubin 0.4, AST 35, ALT 20, Alkaline Phosphatase 67, Troponin I < 0.01, NT-Pro-B Natriuret Pep < 20.0, Total Protein 8.7 H, Albumin 5.1 H, Globulin 3.6 H, Albumin/Globulin Ratio 1.4, HCV Ab RAMY w/Rflx PCR Qn Reactive, HIV Ag/Ab Combo Qual Negative 04/06/25 21:41: SARS-CoV-2 (PCR) Not detected, Influenza A Untype (PCR) Not detected, Influenza Type B (PCR) Not detected 04/07/25 00:18: Troponin I < 0.01 04/06/25 21:30 04/06/25 21:30 Orders (Tests/Meds): ED MEDICATIONS Discontinued Medications Generic Name Dose Route Start Last Admin Trade Name Freq PRN Reason Stop Dose Admin Acetaminophen 1,000 mg 04/06/25 21:37 04/06/25 21:49 Acetaminophen 500mg Tab PO 04/06/25 21:38 1,000 mg ONCE ONE Administration Albuterol/Ipratropium 3 ml 04/06/25 22:02 04/06/25 23:02 Ipratropium/Albuterol 3 Ml Neb IH 04/06/25 22:03 3 ml ONCE ONE Administration Diphenhydramine HCl 25 mg 04/06/25 21:37 04/06/25 21:48 Diphenhydramine 50mg/Ml Vial IV 04/06/25 21:38 25 mg ONCE ONE Administration Lactated Ringer's 1,000 mls @ 999 mls/hr 04/06/25 21:37 04/07/25 00:10 Lactated Ringer's 1000 Ml Bag IV 04/06/25 22:37 Infused .Q1H1M ONE Infusion Iopamidol 80 ml 04/06/25 22:46 04/06/25 22:47 Iopamidol-370 (76%);100ml Bottle IV 04/06/25 22:47 80 ml ONCE ONE Administration Prednisone 40 mg 04/07/25 00:17 04/07/25 00:19 Prednisone 20mg Tab PO 04/07/25 00:18 40 mg ONCE ONE Administration Prochlorperazine Edisylate 10 mg 04/06/25 21:37 04/06/25 21:48 Prochlorperazine 10mg/2ml Vial IV 04/06/25 21:38 10 mg ONCE ONE Administration Sodium Chloride 50 ml 04/06/25 22:46 04/06/25 22:47 0.9 % Sodium Chloride 50 Ml Vial IV 04/06/25 22:47 50 ml ONCE ONE Administration Sodium Chloride 10 ml 04/06/25 22:46 04/06/25 22:47 Sodium Chloride 0.9% 10ml Syr (Rad Only) IV 04/06/25 22:47 10 ml ONCE ONE Administration ORDERS Category Date Time Status CT angio chest PE protocol Stat Cat Scan 04/06/25 20:[address] head/brain wo con Stat Cat Scan 04/06/25 20:57 Completed POCUS Point of Care (ER Only) Stat Exams 04/06/25 20:47 Completed BNP [NT Pro Brain Natriuretic Pep.] Stat Lab 04/06/25 21:30 Completed Complete Blood Count Auto Diff Stat Lab 04/06/25 21:30 Completed Comprehensive Metabolic Panel Stat Lab 04/06/25 21:30 Completed HCV RNA PCR, Quant Stat Lab 04/06/25 21:30 Received HIV Combo Stat Lab 04/06/25 21:30 Completed Hepatitis C Ab Qual. W/ RFX Stat Lab 04/06/25 21:30 Completed Lactic Acid Follow Up (RFLX 1) Stat Lab 04/07/25 01:58 Ordered Magnesium Stat Lab 04/06/25 21:30 Completed Rapid PCR Covid and Flu A/B Stat Lab 04/06/25 21:41 Completed Troponin I Q3H Lab 04/06/25 23:00 Completed Troponin I Stat Lab 04/06/25 21:30 Completed VBG [Venous Blood Gas] Stat RT 04/06/25 21:30 Completed ECG holter initial pfn Stat Y 04/06/25 23:39 Completed ECG Data Tracing #1: I reviewed this ECG and interpreted as documented below: Normal sinus rhythm. No ST elevation or depression. QTc 402 HEART Score History (anamnesis): Slightly suspicious ECG: Normal Age: 45-65 years Risk factors: 1-2 risk factors Troponin: </= normal limit HEART Score: 2 Medical Decision Narrative: Vanessa Chakraborty is a 49y female with a history of COPD, previous breast cancer status post left mastectomy and oral chemotherapy back in 2018, migraines who presents to the emergency department for complaints of syncopal episode. Patient states that earlier today, she became short of breath and passed out in her yard. She states that she woke up with her daughter standing over her. She denies hitting her head. She does state that she deals with chronic migraine headaches and currently has a headache. She denies any chest pain but does report some shortness of breath. She states that she does snort heroin but denies any IV drug use. She states that she has had chills but no objective fevers. She does state that recently she feels like her heart has been fluttering. On arrival, patient is normotensive, heart rate normal at 86, afebrile, oxygen saturation 100% on room air. Physical exam, stated above, reveals an overall well appearing female in no distress. Cardiopulmonary exam reveals some mild end expiratory wheezing but otherwise no murmurs, rales or rhonchi. Abdomen soft, nontender nondistended. Patient's neuroexam is nonfocal. Patient is status post left mastectomy With a well-healed surgical scar over the left anterior chest wall. Differential diagnosis includes, but is not limited to: Cardiac arrhythmia, ACS, pulmonary embolism, electrolyte derangement, hypoglycemia, hypothyroidism, other metabolic derangement, COPD exacerbation, pneumonia, migraine headaches, intracranial mass, metastatic disease, among others. The most morbid conditions were considered and workup was based on these. Workup in the emergency department included: CBC with differential, VBG with lactate, CMP, magnesium level, troponin, BNP, rapid flu/COVID testing, EKG, CT pulmonary embolism. Patient was treated symptomatically with 1 L lactated ringer, 25 mg of IV Benadryl, 10 mg IV Compazine, 1000 mg oral Tylenol as well as 1 DuoNeb treatment. EKG without evidence of ischemia. See interpretation above A [id number] cardiac ultrasound was performed by me personally. No focal wall motion abnormalities. Grossly normal left ejection fraction. No pericardial effusion. See procedure note below. CT pulmonary embolism interpreted by me personally. No evidence of pulmonary embolism or groundglass opacities to suggest pneumonia. See final radiology report for details. Laboratory workup shows no leukocytosis, no anemia, platelets within normal limits. VBG does show respiratory acidosis with pH of 7.24, pCO2 elevated 63.6, bicarb normal at 26.5. Patient's lactate is mildly elevated at 3. This is likely consistent with a mild COPD exacerbation. CMP grossly unremarkable and nonactionable. Liver enzymes within normal limits. Bilirubin normal. Initial troponin less than 0.01. BNP negative at less than 20. Negative flu/COVID testing. On reassessment, patient remains in stable condition. Her repeat troponin is pending at this time. She states that she does not currently have a headache. Patient had a Holter monitor placed due to her frequent palpitations in the setting of a syncopal event. Patient's heart score is 2. Patient's care was handed off to the oncoming physician, Dr. Mathew, pending repeat troponin and ultimate dispo. <Zuri Mathew MD - Last Filed: 04/07/25 02:32> Vital Signs: 04/06/25 19:38 04/06/25 23:21 04/06/25 23:40 Temperature 97.7 F Temperature Source Temporal Artery Scan Pulse Rate 89 Pulse Rate [Right Radial] 86 Respiratory Rate 20 Blood Pressure 139/96 H 142/82 H Blood Pressure [Left Arm] 129/74 Blood Pressure Mean 116 Blood Pressure Mean [Left Arm] 92 Blood Pressure Source [Left Arm] Manual Cuff/ Doppler Blood Pressure Position Blood Pressure Position [Left Arm] Sitting 02 Sat by Pulse Oximetry 100 96 94 L Oxygen Delivery Method Room Air 04/07/25 00:00 04/07/25 00:20 04/07/25 00:40 Temperature Temperature Source Pulse Rate 87 92 H 89 Pulse Rate [Right Radial] Respiratory Rate Blood Pressure 124/88 132/95 H 124/87 Blood Pressure [Left Arm] Blood Pressure Mean Blood Pressure Mean [Left Arm] Blood Pressure Source [Left Arm] Blood Pressure Position Blood Pressure Position [Left Arm] 02 Sat by Pulse Oximetry 96 95 96 Oxygen Delivery Method 04/07/25 01:20 Temperature 97.7 F Temperature Source Oral Pulse Rate 89 Pulse Rate [Right Radial] Respiratory Rate 20 Blood Pressure 124/87 Blood Pressure [Left Arm] Blood Pressure Mean Blood Pressure Mean [Left Arm] Blood Pressure Source [Left Arm] Blood Pressure Position Sitting Blood Pressure Position [Left Arm] 02 Sat by Pulse Oximetry Oxygen Delivery Method Room Air Lab Data Lab Results 04/06/25 21:30: WBC 9.6, RBC 5.54 H, Hgb 15.7, Hct 49.2 H, MCV 88.8, MCH 28.3, MCHC 31.9, RDW 13.4, Plt Count 292, MPV 9.8, Neut % (Auto) 71.9, Lymph % (Auto) 20.8, [place] % (Auto) 3.9, Eos % (Auto) 2.7, Baso % (Auto) 0.5, Neut # (Auto) 6.9, Lymph # (Auto) 2.0, [place] # (Auto) 0.4, Eos # (Auto) 0.3, Baso # (Auto) 0.1, VBG pH 7.24 L, VBG pCO2 63.6 H, VBG pO2 32.1, VBG HCO3 26.5, VBG Total CO2 28.4 H, VBG O2 Saturation 60.9, VBG Base Excess -1.0, VBG Lactic Acid 3.0 H, Sodium 142, Potassium 3.9, Chloride 103, Carbon Dioxide 29, Anion Gap 13.9, BUN 15, Creatinine 0.70, Estimated Creat Clear 76, Estimated GFR 89, Est GFR ( Amer) 107, Glucose 156 H, Calcium 10.6 H, Magnesium 2.0, Total Bilirubin 0.4, AST 35, ALT 20, Alkaline Phosphatase 67, Troponin I < 0.01, NT-Pro-B Natriuret Pep < 20.0, Total Protein 8.7 H, Albumin 5.1 H, Globulin 3.6 H, Albumin/Globulin Ratio 1.4, HCV Ab RAMY w/Rflx PCR Qn Reactive, HIV Ag/Ab Combo Qual Negative 04/06/25 21:41: SARS-CoV-2 (PCR) Not detected, Influenza A Untype (PCR) Not detected, Influenza Type B (PCR) Not detected 04/07/25 00:18: Troponin I < 0.01 Orders (Tests/Meds): ED MEDICATIONS Discontinued Medications Generic Name Dose Route Start Last Admin Trade Name Freq PRN Reason Stop Dose Admin Acetaminophen 1,000 mg 04/06/25 21:37 04/06/25 21:49 Acetaminophen 500mg Tab PO 04/06/25 21:38 1,000 mg ONCE ONE Administration Albuterol/Ipratropium 3 ml 04/06/25 22:02 04/06/25 23:02 Ipratropium/Albuterol 3 Ml Neb IH 04/06/25 22:03 3 ml ONCE ONE Administration Diphenhydramine HCl 25 mg 04/06/25 21:37 04/06/25 21:48 Diphenhydramine 50mg/Ml Vial IV 04/06/25 21:38 25 mg ONCE ONE Administration Lactated Ringer's 1,000 mls @ 999 mls/hr 04/06/25 21:37 04/07/25 00:10 Lactated Ringer's 1000 Ml Bag IV 04/06/25 22:37 Infused .Q1H1M ONE Infusion Iopamidol 80 ml 04/06/25 22:46 04/06/25 22:47 Iopamidol-370 (76%);100ml Bottle IV 04/06/25 22:47 80 ml ONCE ONE Administration Prednisone 40 mg 04/07/25 00:17 04/07/25 00:19 Prednisone 20mg Tab PO 04/07/25 00:18 40 mg ONCE ONE Administration Prochlorperazine Edisylate 10 mg 04/06/25 21:37 04/06/25 21:48 Prochlorperazine 10mg/2ml Vial IV 04/06/25 21:38 10 mg ONCE ONE Administration Sodium Chloride 50 ml 04/06/25 22:46 04/06/25 22:47 0.9 % Sodium Chloride 50 Ml Vial IV 04/06/25 22:47 50 ml ONCE ONE Administration Sodium Chloride 10 ml 04/06/25 22:46 04/06/25 22:47 Sodium Chloride 0.9% 10ml Syr (Rad Only) IV 04/06/25 22:47 10 ml ONCE ONE Administration ORDERS Category Date Time Status CT angio chest PE protocol Stat Cat Scan 04/06/25 20:[address] head/brain wo con Stat Cat Scan 04/06/25 20:57 Completed POCUS Point of Care (ER Only) Stat Exams 04/06/25 20:47 Completed BNP [NT Pro Brain Natriuretic Pep.] Stat Lab 04/06/25 21:30 Completed Complete Blood Count Auto Diff Stat Lab 04/06/25 21:30 Completed Comprehensive Metabolic Panel Stat Lab 04/06/25 21:30 Completed HCV RNA PCR, Quant Stat Lab 04/06/25 21:30 Received HIV Combo Stat Lab 04/06/25 21:30 Completed Hepatitis C Ab Qual. W/ RFX Stat Lab 04/06/25 21:30 Completed Lactic Acid Follow Up (RFLX 1) Stat Lab 04/07/25 01:58 Ordered Magnesium Stat Lab 04/06/25 21:30 Completed Rapid PCR Covid and Flu A/B Stat Lab 04/06/25 21:41 Completed Troponin I Q3H Lab 04/06/25 23:00 Completed Troponin I Stat Lab 04/06/25 21:30 Completed VBG [Venous Blood Gas] Stat RT 04/06/25 21:30 Completed ECG holter initial pfn Stat Y 04/06/25 23:39 Completed HEART Score HEART Score: 2 Medical Decision Narrative: Vanessa Chakraborty is a 49y female with a history of COPD, previous breast cancer status post left mastectomy and oral chemotherapy back in 2018, migraines who presents to the emergency department for complaints of syncopal episode. Patient states that earlier today, she became short of breath and passed out in her yard. She states that she woke up with her daughter standing over her. She denies hitting her head. She does state that she deals with chronic migraine headaches and currently has a headache. She denies any chest pain but does report some shortness of breath. She states that she does snort heroin but denies any IV drug use. She states that she has had chills but no objective fevers. She does state that recently she feels like her heart has been fluttering. On arrival, patient is normotensive, heart rate normal at 86, afebrile, oxygen saturation 100% on room air. Physical exam, stated above, reveals an overall well appearing female in no distress. Cardiopulmonary exam reveals some mild end expiratory wheezing but otherwise no murmurs, rales or rhonchi. Abdomen soft, nontender nondistended. Patient's neuroexam is nonfocal. Patient is status post left mastectomy With a well-healed surgical scar over the left anterior chest wall. Differential diagnosis includes, but is not limited to: Cardiac arrhythmia, ACS, pulmonary embolism, electrolyte derangement, hypoglycemia, hypothyroidism, other metabolic derangement, COPD exacerbation, pneumonia, migraine headaches, intracranial mass, metastatic disease, among others. The most morbid conditions were considered and workup was based on these. Workup in the emergency department included: CBC with differential, VBG with lactate, CMP, magnesium level, troponin, BNP, rapid flu/COVID testing, EKG, CT pulmonary embolism. Patient was treated symptomatically with 1 L lactated ringer, 25 mg of IV Benadryl, 10 mg IV Compazine, 1000 mg oral Tylenol as well as 1 DuoNeb treatment. EKG without evidence of ischemia. See interpretation above A [id number] cardiac ultrasound was performed by me personally. No focal wall motion abnormalities. Grossly normal left ejection fraction. No pericardial effusion. See procedure note below. CT pulmonary embolism interpreted by me personally. No evidence of pulmonary embolism or groundglass opacities to suggest pneumonia. See final radiology report for details. Laboratory workup shows no leukocytosis, no anemia, platelets within normal limits. VBG does show respiratory acidosis with pH of 7.24, pCO2 elevated 63.6, bicarb normal at 26.5. Patient's lactate is mildly elevated at 3. This is likely consistent with a mild COPD exacerbation. CMP grossly unremarkable and nonactionable. Liver enzymes within normal limits. Bilirubin normal. Initial troponin less than 0.01. BNP negative at less than 20. Negative flu/COVID testing. On reassessment, patient remains in stable condition. Her repeat troponin is pending at this time. She states that she does not currently have a headache. Patient had a Holter monitor placed due to her frequent palpitations in the setting of a syncopal event. Patient's heart score is 2. Patient's care was handed off to the oncoming physician, Dr. Mathew, pending repeat troponin and ultimate dispo. Mathew: My assumption of care patient is stable, resting more comfortably. Breathing is improved since receiving DuoNebs. Based on her VBG I am going to treat with steroids as well. She is not having a particularly more productive cough than normal but with her dizziness, syncope, and hypercarbia we will treat as mild COPD exacerbation. Repeat troponin is pending. Patient initially wanted to leave not wanting to wait for the repeat troponin but after further discussion was agreeable to staying until troponin resulted understanding the risks of leaving without it. Repeat troponin also undetectably low less than 0.01. On reassessment she continues to be stable and appropriate for discharge at this time. Holter is in place. She has been referred to Dr. Ruiz for outpatient follow-up. Patient requested refill of albuterol inhaler which was provided. I also provided prescription for prednisone and azithromycin to further treat COPD exacerbation. She also stated she was having some nausea intermittently at home so she wanted to have Zofran prescribed which was added. Patient is appropriate for discharge. Patient was given instructions on symptomatic management, follow up instructions, and return precautions for the emergency department. Patient indicated understanding and was discharged in stable condition. Procedures <Vladimir Bocanegra MD - Last Filed: 04/07/25 00:44> Limited Ultrasound Interpretation:: Limited cardiac ultrasound Indication: -Chest pain -Shortness of breath -Syncope -Weakness -Swelling Identified cardiac views: -Cardiac parasternal long axis -Cardiac parasternal short axis -Cardiac apical four-chamber -Cardiac subxiphoid Findings: -Cardiac activity present -Wall motion grossly normal -Pericardial effusion absent -Right heart strain absent Impression: - From above Images were saved to permanent archive The study was technically adequate CPT: 34458 This study was performed by me, and I personally interpreted all images/videos. Based on my clinical judgement, these images were adequate and did not necessitate further imaging. Critical Care <Vladimir Bocanegra MD - Last Filed: 04/07/25 00:44> Critical Care Time Critical Care Time: No
[2025-04-06 21:40] LABS: Hematocrit 49.2 % (37.0-47.0); Hemoglobin 15.7 g/dL (12.2-16.2); Immature Granulocytes % 0.2 %; Mean Corpuscular HGB Conc 31.9 g/dL (31.8-35.4); Mean Corpuscular Hemoglobin 28.3 pg (27.0-31.2); Mean Corpuscular Volume 88.8 fl (81-99); Nucleated Red Blood Cells % 0 %; Platelet Count 292 K/mm3 (142-424); Red Blood Count 5.54 M/mm3 (4.20-5.40); Red Cell Distribution Width-SD 43.8 fL; White Blood Count 9.6 K/mm3 (4.8-10.8)
[2025-04-06 21:44] LABS: Coronavirus 19, PCR Not Detected (NotDetected); Influenza A, PCR Not Detected (NotDetected); Influenza B, PCR Not Detected (NotDetected)
[2025-04-06 21:46] LABS: Albumin Level 5.1 g/dl (3.5-5.0); Chloride 103 mmol/L (98-107); Potassium 3.9 mmoL/L (3.5-5.1); Sodium 142 mmol/L (136-145)
[2025-04-06] MEDS: LACTATED RINGERS 1000ML 1,000 ML 999 ML IV (21:48)
[2025-04-06] MEDS: PROCHLORPERAZINE 10MG/2ML VIAL 10 MG IV (21:48)
[2025-04-06 21:49] LABS: Alanine Aminotransferase 20 U/L (12-78); Albumin/Globulin Ratio 1.4 (1.1-1.8); Alkaline Phosphatase 67 U/L (38-126); Anion Gap 13.9 mEq/L (5-15); Aspartate Amino Transferase 35 U/L (14-36); Bilirubin,Total 0.4 mg/dl (0.2-1.3); Blood Urea Nitrogen 15 mg/dl (7-17); Calcium 10.6 mg/dl (8.4-10.2); Carbon Dioxide 29 mmol/L (22.0-30.0); Creatinine Clearance Estimated 76 mL/min (50-200); Creatinine,Serum 0.70 mg/dl (0.52-1.04); Estimated Glomerular Filt Rate 89 ml/min (>60); GFR (African American) 107 ML/MIN (>60); Globulin 3.6 g/dL (1.3-3.2); Glucose 156 mg/dl (74-100); Magnesium 2.0 mg/dl (1.6-2.3); Total Protein,Serum 8.7 g/dl (6.3-8.2)
[2025-04-06] MEDS: ACETAMINOPHEN 500MG TAB 1000 MG PO (21:49)
[2025-04-06 21:58] LABS: NT Pro Brain Natriuretic Pep. < 20.0 pg/mL (0-125); VBG HCO3 26.5 mmol/L (23-30); VBG PH 7.24 mmol/L (7.31-7.41); VBG PO2 32.1 mmol/L (28-40)
[2025-04-06 22:00] LABS: Lactate Venous 3.0 mmol/L (0.4-2.0); VBG PCO2 63.6 mmol/L (35-51)
[2025-04-06 22:05] LABS: Troponin I < 0.01 ng/ml (0.00-0.034)
[2025-04-06 22:43] LABS: Hepatitis C Ab Qual. W/ RFX REACTIVE (Negative)
[2025-04-06] MEDS: SODIUM CHLORIDE 0.9% 10ML SYR (RAD ONLY) 10 ML IV (22:47)
[2025-04-06] MEDS: 0.9 % SODIUM CHLORIDE 50 ML VIAL IV (22:47)
[2025-04-06] MEDS: IOPAMIDOL-370 (76%);100ML BOTTLE 80 ML IV (22:47)
[2025-04-06] MEDS: IPRATROPIUM/ALBUTEROL 3 ML NEB IH (23:02)
[2025-04-06 23:21] VITALS: BP 139/96; O2SAT 96
[2025-04-06 23:40] VITALS: BP 142/82; PULSE 89; O2SAT 94
[2025-04-07] VITALS: BP 124/88; PULSE 87; O2SAT 96
[2025-04-07 00:20] VITALS: BP 132/95; PULSE 92; O2SAT 95
--- NOTE | 2025-04-07 00:22 | PC.NURSE ---
Pt wishes to leave prior to 2nd trop result, Dr Arevalo notified.
[2025-04-07 00:40] VITALS: BP 124/87; PULSE 89; O2SAT 96
--- NOTE | 2025-04-07 00:49 | PC.NURSE ---
IV removed per patient request, unhooked from monitoring equipment to ambulate to restroom with slow steady gait
[2025-04-07 01:08] LABS: Troponin I < 0.01 ng/ml (0.00-0.034)
[2025-04-07 01:20] VITALS: BP 124/87; PULSE 89; RESP 20; TEMP 36.5; O2SAT 96
[2025-04-07 01:58] LABS: Reflex Lactic Add Lactic Reflex
== END 2025-04-07 01:20 | disposition home or self-care (01) ==
PROVIDERS: Emergency Provider Student in an Organized Health Care Education/Training Program
DX: J44.1 Chronic obstructive pulmonary disease with (acute) exacerbation (principal); E87.29 Other acidosis; R74.02 Elevation of levels of lactic acid dehydrogenase [LDH]; R00.2 Palpitations; R55 Syncope and collapse; R42 Dizziness and giddiness; R51.9 Headache, unspecified; R11.0 Nausea; F17.210 Nicotine dependence, cigarettes, uncomplicated
CPT/HCPCS: 70450; 71275; 80053; 82803; 83735; 83880; 84484; 85025; 86803; 87389; 87522; 87636; 93005; 93225; 93227; 96361; 96374; 96375; 99285; J0780; J1200; J7120; Q9967

== ENCOUNTER 2025-05-04 16:25 | Emergency (ER) | payer MEDICAID, SELFPAY ==
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
[2025-05-04] VITALS (10 sets, daily range): BP systolic 112–131; BP diastolic 64–89; PULSE 89–110; RESP 14–20; TEMP 36.9; O2SAT 74–99; BMI 19.7
--- NOTE | 2025-05-04 16:39 | ED_ITS ---
Discharge Plan Disposition Patient Disposition: Home, Self-Care Condition: Good Prescriptions Prescriptions: New cephalexin 500 mg capsule 500 mg PO Q6H 7 Days Qty: 28 0RF No Action prednisone 20 mg tablet 40 mg PO DAILY 3 Days Qty: 6 0RF azithromycin 250 mg tablet See Rx Instructions .ROUTE .COMPLEX Qty: 6 0RF Rx Instructions: For 250 mg dose pack: take 500 mg today (day 1), then 250 mg for 4 days (days 2-5) albuterol sulfate [Ventolin HFA] 90 mcg/actuation HFA aerosol inhaler 2 inh inhalation Q6H PRN (Reason: shortness of breath or wheezing) Qty: 6.7 0RF ondansetron 4 mg tablet,disintegrating 4 mg PO Q6H PRN (Reason: nausea and vomiting) Qty: 10 0RF Referrals Follow up/Referrals: Kiran Flores II, MD [Staff Physician, Gastroenterology] - See instructions Provider,Referral, [Primary Care Provider, Medical] - See instructions Dustin Salazar MD [Referring, Urology] - See instructions Activity Restrictions/Add. Instructions Additional Instructions/Restrictions: You will need to follow-up with GI as you do have a dilated common bile duct and this may need to be evaluated with further imaging. Return to the emergency department if you have any acute or worsening abdominal pain. You will need to call GI to schedule this appointment. I have sent you with the referral. You have an incidental adrenal nodule as well as a pancreatic cyst that we will require repeat imaging in about a year with your primary care provider. In addition you do have a urinary tract infection. You were given a dose of antibiotics here in the emergency department. Please pick up and delivery driver your prescription tomorrow. 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 Clinical Impressions Clinical Impression: Dilated cbd, acquired, Adrenal nodule, Pancreatic cyst, UTI (urinary tract infection), Horseshoe kidney Print Language Print Language: Puerto [place]ican Discharge ED Provider: Divya Rodriguez General Adult HPI General Chief complaint: Weakness Stated complaint: shaky,weakness,vomiting Time Seen by Provider: 05/04/25 16:38 History of Present Illness HPI narrative: Patient is a 49-year-old female with a past medical history of heroin use last use this morning at 7 AM who presented to the emergency department with concern for feeling shaky. Patient states that she does have a baseline tremor, but it feels worse today. Patient reports a mild headache but no vision changes no numbness no weakness no other neurologic complaints. Patient denies any chest pain or shortness of breath. Patient reports some mild abdominal pain no nausea vomiting or diarrhea. Patient states that she has been able to eat and drink like usual. Patient states that she currently is not on an oral medicine for her breast cancer. Patient states that she usually will do heroin twice a day and her symptoms currently do not feel like opiate withdrawal as she has been through that before. Patient denies any other new medication changes. Related Data Previous Rx's ?Medication ?Instructions ?Recorded albuterol sulfate 90 mcg/actuation 2 inh inhalation Q6 H PRN shortness 04/07/25 aerosol inhaler (Ventolin HFA) of breath or wheezing # 6.7 grams azithromycin 250 mg tablet See Rx Instructions PO .COM PLEX #6 04/07/25 tabs ondansetron 4 mg disintegrating 4 mg PO Q6H PRN nausea and 04/07/25 tablet vomiting #10 tabs prednisone 20 mg tablet 40 mg (2 x 20 mg) PO DAILY 3 days 04/07/25 #6 tabs cephalexin 500 mg capsule 500 mg PO Q6H 7 days #28 cap s 05/04/25 Allergies Allergy/AdvReac Type Severity Reaction Status Date / Time hydrocodone Allergy Hives Verified 05/04/25 16:52 ibuprofen Allergy Difficulty Verified 04/06/25 19:50 Breathing paroxetine (From Paxil) Allergy Difficulty Verified 04/06/25 19:50 Breathing PFSH PFSH Disclaimer: The information contained in this section may have been updated after the patient was seen, as this information can be updated by other users. Social History (Updated 05/04/25 @ 16:37 by Yamilet Franz RN) Smoking Status: Current every day smoker alcohol intake: never current occupational status: employed Travel in the last 8 weeks?: None Have you lived/traveled outside US in past 30 days?: No Contact w/someone who lives/traveled outside US past 30 days?: No Exposure to someone with infectious disease in past 14 days?: No Do you have a fever (greater than 100.4 F or 38 C)?: No Have you tested positive for COVID-19?: No Exposed to someone with COVID-19 in past 14 days?: No Do you have a sore throat?: No Do you have a cough?: No Do you have any weakness?: No Do you have any diarrhea?: No Are you experiencing any unusual bleeding?: No Do you have any muscle aches/pain?: No Do you have any abdominal pain?: No Are you experiencing loss of taste or smell?: No ROS Obtained: Yes All systems reviewed & no additional complaints except as documented and Yes Systems reviewed as appropriate & no additional complaints except as documented Physical Exam General General appearance: alert and in no apparent distress Head Head exam: atraumatic, normocephalic and normal inspection Eye Eye exam: Present normal appearance, PERRL and EOMI; Absent scleral icterus ENT ENT exam: Present normal exam and normal external ear exam Neck Neck exam: Present normal inspection and full ROM Chest Chest inspection: Present normal inspection and symmetric chest wall rise Respiratory Respiratory exam: Present normal lung sounds bilaterally; Absent respiratory distress or wheezes Cardiovascular Cardiovascular exam: Present regular rate, normal rhythm and normal heart sounds Abdominal Exam Abdominal exam: Present soft and distention; Absent tenderness, guarding or rebound Extremities Exam Extremities exam: Present normal inspection and full ROM Back Exam Back exam: Present normal inspection and full ROM Neurological Exam Neurological exam: Present alert, oriented X3, normal gait, reflexes normal and other (mild tremor at baseline); Absent motor sensory deficit Psychiatric Psychiatric exam: Present normal affect and normal mood Skin Skin exam: Present warm and dry Medical Decision Making Medical Records Medical records reviewed: Yes I reviewed the patient's medical records. Screening: Per USPSTF and CDC recommendations, given the prevalence of disease in our region, it is our hospital?s policy to screen for HIV and viral Hepatitis for all patients aged 18 and over and those with ongoing risk factors. Fam Inquiry Pt receiving controlled substance: No Vital Signs: 05/04/25 16:30 05/04/25 16:30 05/04/25 17:00 Temperature 98.4 F 98.4 F Temperature Source Oral Pulse Rate 98 H 95 H Pulse Rate [Right] 98 H Respiratory Rate 20 20 Blood Pressure 131/89 114/64 Blood Pressure [Right Arm] 131/89 Blood Pressure Mean [Right Arm] 103 02 Sat by Pulse Oximetry 99 99 97 Oxygen Delivery Method Oxygen Flow Rate (LPM) 05/04/25 17:21 05/04/25 17:58 05/04/25 18:30 Temperature Temperature Source Pulse Rate 104 H 110 H 91 H Pulse Rate [Right] Respiratory Rate Blood Pressure 114/64 112/87 118/82 Blood Pressure [Right Arm] Blood Pressure Mean [Right Arm] 02 Sat by Pulse Oximetry 97 94 L 96 Oxygen Delivery Method Oxygen Flow Rate (LPM) 05/04/25 19:12 05/04/25 20:02 05/04/25 20:10 Temperature Temperature Source Pulse Rate 108 H 89 Pulse Rate [Right] Respiratory Rate 20 18 Blood Pressure 130/83 125/83 Blood Pressure [Right Arm] Blood Pressure Mean [Right Arm] 02 Sat by Pulse Oximetry 95 93 L 74 L Oxygen Delivery Method Room Air Room Air Nasal Cannula Oxygen Flow Rate (LPM) 2 05/04/25 20:18 05/04/25 20:22 Temperature 98.5 F Temperature Source Oral Pulse Rate 95 H Pulse Rate [Right] Respiratory Rate 14 Blood Pressure 125/83 Blood Pressure [Right Arm] Blood Pressure Mean [Right Arm] 02 Sat by Pulse Oximetry 91 L Oxygen Delivery Method Room Air Room Air Oxygen Flow Rate (LPM) Lab Data Lab results reviewed: Yes I reviewed the patient's lab results. Lab Results 05/04/25 17:15: WBC 9.5, RBC 4.81, Hgb 13.8, Hct 42.6, MCV 88.6, MCH 28.7, MCHC 32.4, RDW 13.4, Plt Count 283, MPV 9.6, Neut % (Auto) 69.6, Lymph % (Auto) 18.5, Sierra % (Auto) 5.8, Eos % (Auto) 5.1, Baso % (Auto) 0.6, Neut # (Auto) 6.6, Lymph # (Auto) 1.8, Sierra # (Auto) 0.6, Eos # (Auto) 0.5 H, Baso # (Auto) 0.1, Sodium 139, Potassium 4.2, Chloride 101, Carbon Dioxide 30, Anion Gap 12.2, BUN 17, Creatinine 0.80, Estimated Creat Clear 69, Estimated GFR 76, Est GFR ( Amer) 92, Glucose 105 H, Calcium 9.8, Magnesium 1.9, Total Bilirubin 0.4, AST 28, ALT 17, Alkaline Phosphatase 79, Troponin I < 0.01, Total Protein 7.2, Albumin 4.4, Globulin 2.8, Albumin/Globulin Ratio 1.6, Lipase 75 05/04/25 17:58: Urine Color Yellow, Urine Appearance Clear, Urine pH 6.0, Ur Specific Bahama 1.010, Urine Protein Negative, Urine Glucose (UA) Negative, Urine Ketones Negative, Urine Blood Trace-i, Urine Nitrate Negative, Urine Bilirubin Negative, Urine Urobilinogen 0.2, Ur Leukocyte Esterase Trace, Urine RBC 3-5, Urine WBC 50-100, Ur Squamous Epith Cells 3-5, Amorphous Sediment 1+, Urine Bacteria 1+, Urine Mucus 1+, Urine Opiates Screen Positive H, Urine Methadone Screen Negative, Ur Barbituates Screen Negative, Ur Phencyclidine Scrn Negative, Ur Amphetamines Screen Negative, U Benzodiazepines Scrn Negative, Urine Cocaine Screen Negative, U Marijuana (THC) Screen Negative 05/04/25 17:15 05/04/25 17:15 Orders (Tests/Meds): ED MEDICATIONS Discontinued Medications Generic Name Dose Route Start Last Admin Trade Name Miriam PRN Reason Stop Dose Admin Acetaminophen 1,000 mg 05/04/25 19:47 05/04/25 19:58 Acetaminophen 500mg Tab PO 05/04/25 19:48 1,000 mg ONCE ONE Administration Ceftriaxone Sodium 2 gm/ 100 mls @ 200 mls/hr 05/04/25 19:00 05/04/25 19:53 Sodium Chloride IV 05/14/25 18:59 Infused Q24H SAIMA Infusion Iopamidol 80 ml 05/04/25 18:06 05/04/25 18:10 Iopamidol-370 (76%);100ml Bottle IV 05/04/25 18:07 80 ml ONCE ONE Administration Ketorolac Tromethamine 30 mg 05/04/25 19:46 05/04/25 19:58 Ketorolac 30mg/Ml Vial IV 05/04/25 19:47 30 mg ONCE ONE Administration Ondansetron HCl 4 mg 05/04/25 17:45 05/04/25 17:47 Ondansetron 4mg/2ml Vial IV 05/04/25 17:46 4 mg ONCE ONE Administration Prochlorperazine Edisylate 5 mg 05/04/25 19:48 05/04/25 19:58 Prochlorperazine 10mg/2ml Vial IV 05/04/25 19:49 5 mg ONCE ONE Administration Sodium Chloride 50 ml 05/04/25 18:06 05/04/25 18:10 0.9 % Sodium Chloride 50 Ml Vial IV 05/04/25 18:07 50 ml ONCE ONE Administration Sodium Chloride 10 ml 05/04/25 18:06 05/04/25 18:10 Sodium Chloride 0.9% 10ml Syr (Rad Only) IV 05/04/25 18:07 10 ml ONCE ONE Administration ORDERS Category Date Time Status CT abdomen pelvis w con Stat Cat Scan 05/04/25 16:[address] angio chest PE protocol Stat Cat Scan 05/04/25 16:[address] head/brain wo con Stat Cat Scan 05/04/25 16:54 Completed POCUS Point of Care (ER Only) Stat Exams 05/04/25 19:27 Completed CBC w/Auto Diff [Complete Blood Count Auto Diff] Stat Lab 05/04/25 17:15 Completed CMP [Comprehensive Metabolic Panel] Stat Lab 05/04/25 17:15 Completed Lipase Stat Lab 05/04/25 17:15 Completed MAG [Magnesium] Stat Lab 05/04/25 17:15 Completed Trop I [Troponin I] Stat Lab 05/04/25 17:15 Completed UA [Urinalysis and Microscopic] Stat Lab 05/04/25 17:58 Completed UDS [Drug Screen,Urine] Stat Lab 05/04/25 17:58 Completed Urine Culture Stat Micro 05/04/25 17:58 Received EKG Request [ECG Request] Stat Y 05/04/25 16:54 Ordered Medical Decision Narrative: Patient is a 49-year-old female with a past medical history of heroin use who presented to the emergency department with feeling shaky. On arrival, patient was hemodynamically stable with unremarkable vital signs. Differential includes but not limited to: Metastatic disease, intracranial mass, intracranial hemorrhage, intrathoracic pathology, intra-abdominal pathology, electrolyte abnormalities, opiate withdrawal, amongst others. Patient's labs were reviewed and interpreted by myself: CBC showed no leukocytosis, hemoglobin was stable. CMP was unremarkable including normal LFTs and bilirubin. Initial troponin less than 0.01, second troponin less than 0.01. Lipase normal. EKG showed sinus tachycardia without acute ST or T wave changes concerning for ischemia CT head, CT abdomen pelvis and CT chest was reviewed and interpreted by myself and showed no acute pathology. Patient CT abdomen she did have some incidental findings including a dilated common bile duct of 8 mm. Patient also had an adrenal nodule. Bedside ultrasound was performed and showed no evidence of cholelithiasis, cholecystitis and patient had otherwise normal LFTs and bilirubin. At this time, I felt that patient was appropriate for discharge home. Was sent with GI follow-up for the common bile duct dilation. Patient was notified of her incidental findings and was told to follow-up with her primary care provider for routine serial imaging as needed. Patient was otherwise discharged home in stable condition. Critical Care Critical Care Time Critical Care Time: No
--- OUTSIDE RECORDS SUMMARY | 2025-05-04 16:45 | XMS_ITS | Encounter Summary ---
Author Organization Healthcare Address [address] [place] [address] Care Team Providers Care Competitive Shopper Name Role Phone Joyce Arambula MD Primary Care Provider Max Joiner RN Unavailable Unavailable Ligia DuongW Unavailable Unavailable Encounter Details Date Type Department Care Team (Late st Contact Info) Description 10/18/2024 Telephone [facility] [address] [place] [address] Daniele Paris, PharmD Social History [...] any time in the past 12 m [facility], were you homeless or living in a [...] Georges PharmD - 11/11/2024 9:08 AM EDT [facility] 11/11/24 no answer, no vmail set up for [phone] (preferred). Also no answer and no vmail set up for either emergency contact in epic * Telephone Encounter - Anthony Georges PharmD - 11/09/2024 3:04 PM EDT [facility] CA#1: no vm set up * [...] weeks of therapy have been sent to [facility] to be placed on file. Please follow up for appropriate refills and documentation procedure. Daniele Paris PharmD [facility] HCV Team [facility] ED [facility] via secure chat with questions * Addendum Note - Shahana Wallace PharmD - 10/18/2024 12:07 PM EDTAddended by: SHAHANA WALLACE on: 10/18/2024 12:07 PM Modules accepted: Orders * Progress Notes - Ria Bonner PharmD - 10/18/2024 11:18 AM EDT [facility] Hepatitis C Patient Pass Off Team currently taking care of patient: [facility] ED [facility] Reason for Pass off: Other - M2B PA Team taking over care of patient: Specialty Pharmacy Team Additional Info: Patient is currently admitted at . Will attempt M2B delivery upon discharge. Please proceed with prior authorization and normal documentation procedures. Please notify [facility] ED [facility] with PA outcome. * Progress Notes - Ria Bonner PharmD - 10/18/2024 11:12 AM EDT Hepatitis C Treatment Order HCV Order Clinic: [facility] PATIENT INFORMATION PRESCRIBER INFORMATION Patient Name: Vanessa Chakraborty : 1975 Prescriber Name: Lavell Allen Address: [address] [place] [address] Zip Code: [facility] Verbal obtained? Yes Verbal Date: 10/18/24 Race: [...] GT3 Cirrhosis: N/A Chronicity: No HCV RNA: [id number] Hgb: 13.4 273 GFR: 115 ALT: 154 [...] Investigation: Insurance: [employer] J[employer] Pharmacy Help Desk: [phone] BIN: [id number] PCN: [id number] [id number] ID: [id number] DDIs: No IMZ Recommendations: No immunizations needed. Additional Info: Please add pt to [employer]. Order sent to techs for generic SOF/MATTHIEU x 12 weeks for PA processing. Pt may do brand Epclusa, if preferred by INS. Chronicity none * Telephone Encounter - Lavell Allen APRN, DNP - 10/18/2024 9:40 AM EDT I have reviewed Vanessa Palmer [id number] chart. Surgical Hx: ANITA I approve: [x]Sof/Matthieu [...] from provider and then route order to [facility] for PA processing forpossible M2B dispense. Daniele Paris PharmD SP HCV Team [facility] ED [facility] via secure [...] LAB COAGULATION METHOD 03/29/2025 2:30 PM EDT [facility] INR 1.0 0.9 - 1.1 LAB COAGULATION METHOD 03/29/2025 2:30 PM EDT [facility] Blood Venous blood specimen / Unknown Venipuncture / Unknown 03/29/2025 12:44 PM EDT 03/29/2025 12:45 PM EDT Narrative [facility] - 03/29/2025 2:30 PM EDT OPTIMAL INR RANGES FOR PATIENT ON ORAL ANTICOAGULANT THERAPY Prevention of venous thromboembolism INR 2.0 to 3.0 In patients with heart disease: Atrial fibrillation INR 2.0 to 3.0 Valvular heart disease INR 2.0 to 3.0 Tissue heart valves INR 2.0 to 3.0 Mechanical prosthetic valves INR 2.5 to 3.5 Prevention of recurrent IN INR 2.5 to 3.5 us Lavell Allen APRN, DNP LAB BLOOD ORDERABLES F inal Result [facility] [address] [place] [address] * Hepatitis C Virus (HCV) Quantitative PCR (03/29/2025 12:44 PM EDT) [facility] Hepatitis C Virus (HCV) Quantitative Interpretation Not Detected Not Detected. 03/31/2025 7:15 AM EDT [facility] Blood Venous blood specimen / Unknown Venipuncture / Unknown 03/29/2025 12:44 PM EDT 03/29/2025 12:45 PM EDT Narrative [facility] - 03/31/2025 7:15 AM EDT The [employer] M2000 HCV test is a Real Time [...] ORDERABLES F inal Result Performing Organization Address [facility] Co de Phone Number [facility] [address] [place] [address] * Hepatitis B Virus (HBV) Quantitative PCR (03/29/2025 12:44 PM EDT) [facility] Hepatitis B Virus (HBV) Quantitative Interpretation Not Detected Not Detected 03/31/2025 7:33 AM EDT [facility] Blood Venous blood specimen / Unknown Venipuncture / Unknown 03/29/2025 12:44 PM EDT 03/29/2025 12:45 PM EDT Narrative [facility] - 03/31/2025 7:33 AM EDT [...] FDA approved for clinical use. us Lavell Gonsalez Danyell PROJECT MANAGEMENT, DNP LAB BLOOD ORDERABLES F inal Result [facility] [address] [place] [address] * (ABNORMAL) Comprehensive Metabolic Panel, Plasma (03/29/2025 12:44 PM EDT) Glucose, Plasma 107(H) 74 - 99 mg/dL 03/29/2025 2:32 PM EDT [facility] BUN, Plasma 11 7 - 21 mg/dL 03/29/2025 2:32 PM EDT [facility] Creatinine, Plasma 0.69 0.60 - 1.10 mg/dL 03/29/2025 2:32 PM EDT [facility] BUN/Creatinine Ratio 16 03/29/2025 2:32 PM EDT [facility] Sodium, Plasma 144 136 - 145 mmol/L 03/29/2025 2:32 PM EDT [facility] Potassium, Plasma 4.2 3.6 - 4.9 mmol/L 03/29/2025 2:32 PM EDT [facility] Chloride, Plasma 105 97 - 107 mmol/L 03/29/2025 2:32 PM EDT [facility] CO2, Plasma 31(H) 22 - 29 mmol/L 03/29/2025 2:32 PM EDT [facility] Anion Gap 8 6 - 16 mmol/L 03/29/2025 2:32 PM EDT [facility] Total Calcium, Plasma 9.9 8.9 - 10.2 mg/dL 03/29/2025 2:32 PM EDT [facility] Total Protein 6.8 6.3 - 7.9 g/dL 03/29/2025 2:32 PM EDT [facility] Albumin, Plasma 4.1 3.5 - 5.2 g/dL 03/29/2025 2:32 PM EDT [facility] AST, Plasma 21 10 - 35 U/L 03/29/2025 2:32 PM EDT [facility] ALT, Plasma 15 10 - 35 U/L 03/29/2025 2:32 PM EDT [facility] Alkaline Phosphatase, Plasma 78 35 - 104 U/L 03/29/2025 2:32 PM EDT [facility] Total Bilirubin, Plasma 0.2 0.2 - 1.1 mg/dL 03/29/2025 2:32 PM EDT [facility] eGFRcr 105.9 mL/min/1.7 3m*2 03/29/2025 2:32 PM EDT [facility] Comment:Reported eGFRcr in m L/min/1.73m2 is based the CKD-EPI 2020 equation that does not use a race coefficient. Blood Venous blood specimen / Unknown Venipuncture / Unknown 03/29/2025 12:44 PM EDT 03/29/2025 12:45 PM EDT us Lavell Allen PROJECT MANAGEMENT, DNP LAB BLOOD ORDERABLES F inal Result [facility] [address] [place] [address] * CBC W/O Differential (03/29/2025 12:44 PM EDT) WBC Count 7.10 3.70 - 10.30 10*3/uL LAB HEMATOLOGY METHOD 03/29/2025 2:22 PM EDT [facility] RBC Count 4.98 3.90 - 5.20 10*6/uL LAB HEMATOLOGY METHOD 03/29/2025 2:22 PM EDT [facility] HGB 14.3 11.2 - 15.7 g/dL LAB HEMATOLOGY METHOD 03/29/2025 2:22 PM EDT [facility] HCT 44.4 34.0 - 45.0 % LAB HEMATOLOGY METHOD 03/29/2025 2:22 PM EDT [facility] Platelet Count 277 155 - 369 10*3/uL LAB HEMATOLOGY METHOD 03/29/2025 2:22 PM EDT [facility] MCV 89 79 - 98 fL LAB HEMATOLOGY METHOD 03/29/2025 2:22 PM EDT [facility] MCH 28.7 26.0 - 32.0 pg LAB HEMATOLOGY METHOD 03/29/2025 2:22 PM EDT [facility] MCHC 32.2 30.7 - 35.5 g/dL LAB HEMATOLOGY METHOD 03/29/2025 2:22 PM EDT [facility] RDW 13.8 11.5 - 14.5 % LAB HEMATOLOGY METHOD 03/29/2025 2:22 PM EDT [facility] MPV 10.6 8.8 - 12.5 fL LAB HEMATOLOGY METHOD 03/29/2025 2:22 PM EDT [facility] nRBC 0.0 <=0.0 per 100 WBCs LAB HEMATOLOGY METHOD 03/29/2025 2:22 PM EDT [facility] Blood Venous blood specimen / Unknown Venipuncture / Unknown 03/29/2025 12:44 PM EDT 03/29/2025 12:45 PM EDT us Lavell Allen PROJECT MANAGEMENT, DNP LAB BLOOD ORDERABLES F inal Result [facility] [address] [place] [address] documented in this encounter Visit Diagnoses Diagnosis Chronic hepatitis C without hepatic coma- Primary documented in this encounter Additional Health Concerns Assessment Noted Time A Body Mass Index follow-up plan has been documented for the patient 10/18/2024 12:44 PM EDT documented as of this encounter Care Teams Competitive Shopper Relationship Specialty Start Date End Date oJyce Arambula MD [address] [place] [address] PCP - General 12/15/20 Max Joiner, GELY ````````````````````````[facility] - PACU - MAJOR, PAV A Registered Nurse 10/11/24 Ligia Duong, [place] [address] [employer] Application Internship 10/09/24 10/23/24 documented as of this encounter
--- OUTSIDE RECORDS SUMMARY | 2025-05-04 16:45 | XMS_ITS | Encounter Summary ---
Author Organization Healthcare Address [address] [place] [address] Care Team Providers Care Hand Molder Meat Name Role Phone Joyce Arambula MD Primary Care Provider [phone] Max Joiner RN Unavailable Unavailable Encounter Details Date Type Department Care Team (Late st Contact Info) Description 04/20/2025 [facility] Outreach [facility] [address] [place] [address] Cherelle Myles Social History Tobacco Use Types Packs/Day Years [...] 6 04/11/2025 Housing Stability Vital Sign Answer Sylvester e Recorded In the last 12 months, was t here a time when you were not able to pay the mortgage or rent on time? Yes 10/11/2024 In the past 12 months, how m any times have you moved where you were living? 1 10/11/2024 At any time in the past 12 m [facility], were you homeless or living in a alf (including now)? No 10/11/2024 Utilities Answer Date [...] encounter Miscellaneous Notes * Progress Notes - Cherelle Myles - 04/20/2025 8:43 AM EDT Pt. completed tx. HCV RNA -03/29/2025. Pt. closed from HCV program on this date. documented in this encounter Plan of Treatment [...] Time PHQ-9 Depression Total Score: 6 04/11/20 1:42 PM EDT A fall risk assessment has been complete d for the patient 04/11/2025 1:43 PM EDT A Body Mass Index follow-up plan has been documented for the patient 04/11/2025 1:45 PM EDT documented as of this encounter Care Teams Hand Molder Meat Relationship Specialty Start Date End Date Joyce Arambula MD [address] [place] [address] PCP - General 12/15/20 Max Joiner RN ````````````````````````[facility] - PACU - MAJOR, PAV A Registered Nurse 10/11/24 documented as of this encounter
--- OUTSIDE RECORDS SUMMARY | 2025-05-04 16:45 | XMS_ITS | Encounter Summary ---
Author Organization Healthcare Address [address] [place] [address] Care Team Providers Care Tow Boat Captain Name Role Phone Joyce Arambula MD Primary Care Provider [phone] Max Joiner RN Unavailable Unavailable Ligia Duong PRESENTATION MANAGER Unavailable Unavailable Reason for Visit * Reason Onset Date Comments [facility] HCV SVR F/U 10/18/2024 Encounter Details Date Type Department Care Team (Late st Contact Info) Description 10/18/2024 Telephone [facility] [address] [place] [id number] Ria Bonner, PharmD [facility] HCV SVR F/U Social History Tobacco Use [...] any time in the past 12 m [facility], were you homeless or living in a [place] [facility] [place] facility (including now)? No 10/11/2024 Utilities Answer Date Recorded In the past 12 months has e electric, gas, oil, or water company threatened to shut off services in your home? No 10/11/2024 Comments No Sex and Gender Information Value Date Recorded Sex Assigned at Not on file Legal Sex Female 8:35 PM EDT Gender Identity Not on file Sexual Orientation Not on file documented as of this encounter Functional Status * Over the past 2 weeks, how often have you been bothered by any of the following problems? Question Answer Date of Assessment Author Little interest or pleasure in doing things Not at all 04/11/2025 1:42 PM EDT Emeka Child APRN, DNP Feeling down, depressed, or hopeless Several days 04/11/2025 1:42 PM EDT DanyellMissael monroe APRN, DNP Patient Health Questionnaire-2 Score 1 [...] watching television Several days 04/11/2025 1:42 PM DAMARIST Missael Child APRN, DNP Moving or speaking so slowly [...] Assessment Author Somewhat difficult 04/11/2025 1:42 PM Missael Magallon APRN, DNP documented as of this encounter Miscellaneous Notes * Telephone Encounter - Gene Aguilar - 04/12/2025 8:04 AM EDT Pt attended provider appointment scheduled to discuss SVR labs. Pt's HCV RNA from 04/11/2025 resulted as not detected and therefore pt is considered to be cured of HCV at this time. [facility] closing task * Telephone Encounter - Gene Aguilar - 03/30/2025 11:48 AM EDT Called patient at [phone] to schedule telehealth appt with Missael Child for SVR labs A telehealth appt is scheduled for 04/11/2025 at 12:20 PM. * Telephone Encounter - Gene Aguilar - 03/28/2025 12:20 PM EDT Called patient at [phone] She thought her appointment was tomorrow - she is rescheduled for tomorrow 03/29/2025 at 12:20 at [facility]. * Telephone Encounter - Gene Aguilar - 03/24/2025 8:51 AM EDT Spoke with patient called [phone] Patient only has a ride to get labs Friday03/28/2025 she has the following appointments: SVR Labs @ [facility] 03/28/2025 @ 10:40 am Patients SVR telehealth visit with Missael Child APRN on 03/29/2025 9am has been canceled and whenlabs are drawn , telehealth will be rescheduled. * Telephone Encounter - Gene Aguilar - 03/21/2025 1:58 PM EDT Call attempt # 2 Called [phone] No VM set up and no answer. [...] us back. * Telephone Encounter - Ria Bonner PharmD - 01/17/2025 9:37 AM EDT The [...] documented as of this encounter Care Teams Tow Boat Captain Relationship Specialty Start Date End Date Joyce Arambula MD [address] [place] [address] PCP - General 12/15/20 Max Joiner RN ````````````````````````[facility] - PACU - MAJOR, PAV A Registered Nurse 10/11/24 Ligia Duong, [place] [address] Driver Spot Facer 10/09/24 10/23/24 documented as of this encounter
--- OUTSIDE RECORDS SUMMARY | 2025-05-04 16:45 | XMS_ITS | Encounter Summary ---
Author Organization Healthcare Address [address] [place] [address] Care Team Providers Care Auto Painter Helper Name Role Phone Joyce Arambula MD Primary Care Provider [phone] Max Joiner RN Unavailable Unavailable Encounter Details Date Type Department Care Team (Latest Contact Info) Description 04/11/2025 Travel Social History Tobacco Use Types Packs/Day [...] time in the past 12 m [facility], were you homeless or living in a intermediate (including now)? No 10/11/2024 Utilities Answer Date [...] Health Questionnaire-2 Score 1 04/11/2025 1:42 PM EDT Missael Child APRN, DNP * Question Answer Date of Assessment Author Trouble falling or staying asleep, or sleeping too much Not at all 04/11/2025 1:42 PM EDT Missael Child APRN, DNP Feeling tired or having little energy Several days 04/11/2025 1:42 PM DAMARIST Missael Child APRN, DNP Poor appetite or overeating Nearly every day 04/11/2025 1:42 PM DAMARIST Missael Child APRN, DNP Feeling bad about yourself - or that you are a failure or have let yourself or your family down Not at all 04/11/2025 1:42 PM DAMARIST Missael Child APRN, DNP Trouble concentrating on things, such as reading the newspaper or watching television Several days 04/11/2025 1:42 PM DAMARIST Missael Child APRN, DNP Moving or speaking so slowly that other people could have noticed? Or the opposite - being so fidgety or restless that you have been moving around a lot more than usual. Not at all 04/11/2025 1:42 PM DAMARIST Missael Child APRN, DNP Thoughts that you would be better off or hurting yourself in some way Not at all 04/11/2025 1:42 PM DAMARIST Missael Child APRN, DNP Patient Health Questionnaire-9 Score 6 04/11/2025 1:42 PM EDT Missael Child APRN, DNP * How difficult have these problems made it for you to do your work, take care of things at home, or get along with other people? Answer Date of Assessment Author Somewhat difficult 04/11/2025 1:42 PM EDT Missael Child APRN, DNP documented as of this encounter Plan of Treatment Not on [...] documented as of this encounter Care Teams Auto Painter Helper Relationship Specialty Start Date End Date Joyce Arambula MD [address] [place] [address] PCP - General 12/15/20 Max Joiner RN ````````````````````````[facility] - PACU - MAJOR, PAV A Registered Nurse 10/11/24 documented as of this encounter
--- OUTSIDE RECORDS SUMMARY | 2025-05-04 16:46 | XMS_ITS | Encounter Summary ---
Author Organization Healthcare Address [address] [place] [address] Care Team Providers Care Bar Gauger And Lubricator Tender Name Role Phone Joyce Arambula MD Primary Care Provider [phone] Max Joiner RN Unavailable Unavailable Encounter Details [...] any time in the past 12 m [facility], were you homeless or living in a snf (including now)? No 10/11/2024 Utilities Answer Date [...] documented as of this encounter Care Teams Bar Gauger And Lubricator Tender Relationship Specialty Start Date End Date Joyce Arambula MD [address] [place] [address] PCP - General 12/15/20 Max Joiner RN ````````````````````````[facility] - PACU - MAJOR, PAV A Registered Nurse 10/11/24 documented as of this encounter
--- OUTSIDE RECORDS SUMMARY | 2025-05-04 16:46 | XMS_ITS ---
Author Organization [facility] Address [address] [place], [place] [id number] Care Team Providers Care Slot Floorperson Name Role Phone Joyce Arambula MD Primary Care Provider [phone] Max Joiner RN Unavailable Unavailable Hepatitis C Program Status:Closed (Closed) Start date:10/09/2024 Enrollment date:10/09/2024 Enrollment reason:HCV End date:04/20/2025 Close reason:HCV RNA Negative Continued Care and Services Coordination
--- OUTSIDE RECORDS SUMMARY | 2025-05-04 16:46 | XMS_ITS | Clinical Summary ---
Author Organization Healthcare Address [address] [place] [address] Care Team Providers Care School Librarian Name Role Phone Joyce Arambula MD Primary Care Provider [phone] Max Joiner RN Unavailable Unavailable Allergies Active [...] other nostril if symptoms continue 2 each 10/14/19 25 Active ondansetron ODT (Zofran-ODT) 4 MG disintegrating tablet Take 1 tablet (4 mg) by mouth every 6 hours as needed for nausea or vomiting. 20 tablet 10/19/19 25 Active predniSONE 10 MG (21) tablet therapy pack Take by mouth. Active folic acid (Folvite) 1 MG tablet Take 1 tablet (1 mg) by mouth daily. 30 tablet 10/19/19 25 025 Discontinu ed(Per Patient Report) gabapentin (Neurontin) 100 MG capsule Take 2 capsules (200 mg) by mouth in the morning and 2 capsules (200 mg) in the evening and 2 capsules (200 mg) before bedtime. 10 capsule 10/19/19 25 025 Discontinu ed(Per Patient Report) thiamine (Vitamin B-1) 100 MG tablet Take 1 tablet (100 mg) by mouth daily. 30 tablet 10/19/19 25 025 Discontinu ed(Per Patient Report) sofosbuvir-velpata svir (Epclusa) 400-100 MG tabletIndications: Chronic hepatitis C without hepatic coma Take 1 tablet by mouth daily. 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 Medicine Specialties [address] [place] [address] Cherelle Myles 04/11/2025 12:40 PM EDT Office Visit [facility] Medicine Specialties [address] [place] [address] Missael Child, MACHINING MANAGER, DNP Hepatitis C virus infection cured after antiviral drug therapy (Primary Dx); Healthcare maintenance 04/11/2025 Travel 03/29/2025 Travel from Last 3 Months Social [...] any time in the past 12 m [facility], were you homeless or living in a half-way (including now)? No 10/11/2024 Utilities Answer Date [...] EDT Inhaled Oxygen Concentration - - Weight 51.7 kg (114 lb) 04/11/2025 1:32 PM EDT Height 165.1 cm (5' 5 ) 04/11/2025 1:32 PM EDT Body Mass Index 18.97 04/11/2025 1:32 PM EDT Plan of Treatment Health Maintenance Due Date Last Done Comments [facility]-Infant/Child/Adol SDOH Screenings 1975 [facility]-Hepatitis A Vaccines (1 [...] (2 - Td or Tdap) 01/24/2024 01/23/2014 [facility]-Lung Cancer Screening 2024 [facility]-Zoster Vaccines (1 of 2) 2024 [id number] Vaccine (1 - season) 2025 [facility]-Influenza Vaccine (#1) 2025 [facility]- SDOH Screenings 04/13/2025 [facility]-Adult SDOH Screenings 04/13/2025 10/11/2024 [facility]-Depression Screening 04/11/2026 025, 04/11/2025 [facility]-Cervical Cancer Screening Discontinued [facility]-HPV/Cotest Discontinued 08/16/1996 [...] Detected Not Detected 03/31/2025 7:33 AM EDT [facility] Blood Venous blood specimen / Unknown Venipuncture / Unknown 03/29/2025 12:44 PM EDT 03/29/2025 12:45 PM EDT Narrative [facility] - 03/31/2025 7:33 AM [...] approved for clinical use. Missael Child APRN, [facility] LAB BLOOD ORDERABLES F inal Result [facility] [address] [place] [address] * Hepatitis C Virus (HCV) Quantitative PCR (03/29/2025 12:44 PM EDT) Pathologist [facility] Hepatitis C Virus (HCV) Quantitative Interpretation Not Detected Not Detected. 03/31/2025 7:15 AM EDT [facility] Blood Venous blood specimen / Unknown Venipuncture / Unknown 03/29/2025 12:44 PM EDT 03/29/2025 12:45 PM EDT Narrative [facility] - 03/31/2025 7:15 AM EDT The Mckenzie M2000 HCV test is a Real Time [...] approved for clinical use. Missael Child APRN, [facility] LAB BLOOD ORDERABLES F inal Result Performing Organization Address City/[facility]/ZIP Co de Phone Number [facility] [address] [place] [address] * Prothrombin Time/INR (03/29/2025 12:44 PM EDT) Prothrombin Time 13.3 12.0 - 14.3 sec LAB COAGULATION METHOD 03/29/2025 2:30 PM EDT [facility] INR 1.0 0.9 - 1.1 LAB COAGULATION METHOD 03/29/2025 2:30 PM EDT [facility] Blood Venous blood specimen / Unknown Venipuncture / Unknown 03/29/2025 12:44 PM EDT 03/29/2025 12:45 PM EDT Narrative [facility] - 03/29/2025 2:30 PM EDT OPTIMAL INR RANGES FOR PATIENT ON ORAL ANTICOAGULANT THERAPY Prevention of venous thromboembolism INR 2.0 to 3.0 In patients with heart disease: Atrial fibrillation INR 2.0 to 3.0 Valvular heart disease INR 2.0 to 3.0 Tissue heart valves INR 2.0 to 3.0 Mechanical prosthetic valves INR 2.5 to 3.5 Prevention of recurrent VA INR 2.5 to 3.5 Missael Child APRN, DNP LAB BLOOD ORDERABLES F inal Result Performing Organization Address [facility] Co de Phone Number [facility] [address] [place] [address] * CBC W/O Differential (03/29/2025 12:44 PM EDT) WBC Count 7.10 3.70 - 10.30 10*3/uL LAB HEMATOLOGY METHOD 03/29/2025 2:22 PM EDT [facility] RBC Count 4.98 3.90 - 5.20 10*6/uL LAB HEMATOLOGY METHOD 03/29/2025 2:22 PM EDT [facility] HGB 14.3 11.2 - 15.7 g/dL LAB HEMATOLOGY METHOD 03/29/2025 2:22 PM EDT [facility] HCT 44.4 34.0 - 45.0 % LAB HEMATOLOGY METHOD 03/29/2025 2:22 PM EDT [facility] Platelet Count 277 155 - 369 10*3/uL LAB HEMATOLOGY METHOD 03/29/2025 2:22 PM EDT [facility] MCV 89 79 - 98 fL LAB HEMATOLOGY METHOD 03/29/2025 2:22 PM EDT [facility] MCH 28.7 26.0 - 32.0 pg LAB HEMATOLOGY METHOD 03/29/2025 2:22 PM EDT [facility] MCHC 32.2 30.7 - 35.5 g/dL LAB HEMATOLOGY METHOD 03/29/2025 2:22 PM EDT [facility] RDW 13.8 11.5 - 14.5 % LAB HEMATOLOGY METHOD 03/29/2025 2:22 PM EDT [facility] MPV 10.6 8.8 - 12.5 fL LAB HEMATOLOGY METHOD 03/29/2025 2:22 PM EDT [facility] nRBC 0.0 <=0.0 per 100 WBCs LAB HEMATOLOGY METHOD 03/29/2025 2:22 PM EDT [facility] Blood Venous blood specimen / Unknown Venipuncture / Unknown 03/29/2025 12:44 PM EDT 03/29/2025 12:45 PM EDT Missael Child APRN, DNP LAB BLOOD ORDERABLES F inal Result [facility] [address] [place] [address] * (ABNORMAL) Comprehensive Metabolic Panel, Plasma (03/29/2025 12:44 PM EDT) [facility] Glucose, Plasma 107(H) 74 - 99 mg/dL 03/29/2025 2:32 PM EDT [facility] BUN, Plasma 11 7 - 21 mg/dL 03/29/2025 2:32 PM EDT [facility] Creatinine, Plasma 0.69 0.60 - 1.10 mg/dL 03/29/2025 2:32 PM EDT [facility] BUN/Creatinine Ratio 16 03/29/2025 2:32 PM EDT [facility] Sodium, Plasma 144 136 - 145 mmol/L 03/29/2025 2:32 PM EDT [facility] Potassium, Plasma 4.2 3.6 - 4.9 mmol/L 03/29/2025 2:32 PM EDT [facility] Chloride, Plasma 105 97 - 107 mmol/L 03/29/2025 2:32 PM EDT [facility] CO2, Plasma 31(H) 22 - 29 mmol/L 03/29/2025 2:32 PM EDT [facility] Anion Gap 8 6 - 16 mmol/L 03/29/2025 2:32 PM EDT [facility] Total Calcium, Plasma 9.9 8.9 - 10.2 mg/dL 03/29/2025 2:32 PM EDT [facility] Total Protein 6.8 6.3 - 7.9 g/dL 03/29/2025 2:32 PM EDT [facility] Albumin, Plasma 4.1 3.5 - 5.2 g/dL 03/29/2025 2:32 PM EDT [facility] AST, Plasma 21 10 - 35 U/L 03/29/2025 2:32 PM EDT [facility] ALT, Plasma 15 10 - 35 U/L 03/29/2025 2:32 PM EDT [facility] Alkaline Phosphatase, Plasma 78 35 - 104 U/L 03/29/2025 2:32 PM EDT [facility] Total Bilirubin, Plasma 0.2 0.2 - 1.1 mg/dL 03/29/2025 2:32 PM EDT [facility] eGFRcr 105.9 mL/min/1.7 3m*2 03/29/2025 2:32 PM EDT [facility] Comment:Reported eGFRcr in m L/min/1.73m2 is based the CKD-EPI 2020 equation that does not use a race coefficient. Blood Venous blood specimen / Unknown Venipuncture / Unknown 03/29/2025 12:44 PM EDT 03/29/2025 12:45 PM EDT us Missael Child MACHINING MANAGER, DNP LAB BLOOD ORDERABLES F inal Result [facility] [address] [place] [address] * ED HIV 1/2 Antibody/Antigen Screen w/Reflex to HIV 1/2 Differentiation (10/09/2024 1:46 PM EST) HIV 1 & 2 Antibody/Antigen Screen Non Reactive Non Reactive 10/09/2024 2:49 PM EST [facility] Comment:Screening for HIV 1 & 2 antibodies, and P24 antigen is NONREACTIVE. No confirmatory testing is required. Blood Venous blood specimen / Unknown Venipuncture / Unknown 10/09/2024 1:46 PM EST 10/09/2024 2:01 PM EST us Zina Grimm MD LAB BLOOD ORDERABLES Final R esult [facility] [address] [place] [address] * Cytology (08/16/1996 12:00 AM EST) 08/16/1996 08/18/1996 Narrative [facility] - 08/19/1996 12:00 AM EST [facility] MR #: [id number] [facility] [address] [place] [address] 1975 (Age: 20) FW Collect Date: 08/16/1996 00:00 Receipt Date: 08/18/1996 00:00 Page 1 DEPARTMENT OF PATHOLOGY AND LABORATORY MEDICINE CYTOPATHOLOGY REPORT Email: [email or web address] * Converted Case * This report may [...] results is suggested (please call Microbiology at [phone] for results). CLINICAL INFORMATION: Menstrual History: {Not Provided} Date of Last Menstrual Period: {Not Provided} SPECIMEN DESCRIPTION: A: CERVICAL/VAGINAL SMEAR, PAP ICD: F: {Not Entered} SNOMED CODES: 1; [id number] In cases where a pathologist has signed out the report, the service has been rendered in part by a resident. The signing pathologist has performed and is responsible for the reported pathologic evaluation. us Historical Provider LAB PATHOLOGY ORDERABLES Fin al Result [facility] from Last 3 Months or Most Recently Relevant to Health Maintenance Insurance Advance Directives * Full Code (Latest Code Status on File) Date Activated Date Inactivated Comments 10/09/2024 6:29 PM 10/18/2024 4:13 PM Question Answer Comments Patient has decision-making capacity? Yes Care Teams School Librarian Relationship Specialty Start Date End Date Joyce Arambula MD [address] [place] [id number] PCP - General 12/15/20 Max Joiner RN ````````````````````````[facility] - PACU - MAJOR, CAM Walter Registered Nurse 10/11/24
--- NOTE | 2025-05-04 16:54 | CT_ITS ---
PROCEDURE INFORMATION: Exam: CT Abdomen And Pelvis With Contrast Exam date and time: 05/04/2025 6:09 PM Age: 49 years old Clinical indication: Vomiting; Abdominal pain; Additional info: Abdominal pain, vomiting TECHNIQUE: Imaging protocol: Computed tomography of the abdomen and pelvis with contrast. 3D rendering (Not supervised by radiologist): MIP and/or 3D reconstructed images were created by the technologist. Radiation optimization: All CT scans at this facility use at least one of these dose optimization techniques: automated exposure control; mA and/or kV adjustment per patient size (includes targeted exams where dose is matched to clinical indication); or iterative reconstruction. Contrast material: ISOVUE; Contrast volume: 80 ml; Contrast route: IV; COMPARISON: CT ANGIO CHEST PE PROTOCOL 04/06/2025 10:40 PM FINDINGS: Esophagus: The visualized distal esophagus is largely contracted without gross abnormality. Liver: Question mild generalized fatty infiltration of the liver. Normal contour. No mass lesions. No intrahepatic biliary ductal dilatation. Gallbladder and biliary ducts: Gallbladder is unremarkable. Mildly dilated extrahepatic bile ducts with common bile duct measuring up to 8 mm diameter proximally. No calcified duct stones or obstructive mass lesions are evident by CT. Clinical/laboratory correlation recommended regarding evidence of biliary obstruction. Consider sonographic assessment as clinically indicated. Pancreas: Mild generalized pancreatic atrophy. 5 mm cystic lesion in the anterior pancreatic head series 3, image 145. Reimaging every 1 year for 5 years is recommended. (Reference: Marco A, 2017) Spleen: Normal. No splenomegaly. Adrenal glands: Right adrenal gland is normal. 13 x 11 mm left adrenal nodule measuring 61 Hounsfield units average density. In a patient with no cancer history, consider 12 month follow-up adrenal CT. (Reference: [facility]) Kidneys and ureters: Anomalous horseshoe kidney configuration noted. No hydronephrosis or hydroureter. No urinary tract stones are identified. Stomach and bowel: Mildly excessive fluid content and mucosal enhancement in the stomach and mid to distal small bowel without dilatation or transition point, suspicious for changes of gastroenteritis. No evidence of bowel obstruction or perforation. Large volume colonic stool suggesting constipation. The small bowel is nondilated with no gross abnormality. Appendix: The appendix is normal in caliber and demonstrates no evidence of appendicitis. Intraperitoneal space: No peritoneal free fluid or air. Vasculature: No acute vascular abnormalities. Lymph nodes: Borderline enlarged upper abdominal aortocaval nodes, nonspecific. Urinary bladder: Unremarkable as visualized. Reproductive: Prior hysterectomy. Bones/joints: No acute osseous abnormalities. Moderate left hip osteoarthritic change inferomedially. Soft tissues: No acute soft tissue abnormalities. IMPRESSION: 1. Mildly dilated extrahepatic bile ducts with common bile duct 8 mm diameter. Clinical/laboratory correlation recommended regarding evidence of biliary obstruction. Consider sonographic assessment as clinically indicated. 2. Findings suspicious for mild gastroenteritis. No evidence of bowel obstruction or perforation. 3. Large volume colonic stool suggesting constipation. 4. There is a 5 mm cystic lesion in the pancreatic head. Please see follow-up recommendations above. 5. There is a 13 mm indeterminate left adrenal nodule. Please see follow-up recommendations above. 6. Additional nonemergent findings detailed above. REFERENCES: 1. Marco A AJ, et al. Management of Incidental Pancreatic Cysts: A White Paper of the ACR Incidental Findings Committee. J Am Ron Radiol. 2017;14(7):911-923. 2. Rhonda LEVINE, et al. Management of Incidental Adrenal Masses: A White Paper of the ACR Incidental Findings Committee. J Am Ron Radiol. 2017;14(8):3947-9371.
--- NOTE | 2025-05-04 16:54 | CT_ITS ---
PROCEDURE INFORMATION: Exam: CT Head Without Contrast Exam date and time: 05/04/2025 6:07 PM Age: 49 years old Clinical indication: Other: Tremors, active breast cancer TECHNIQUE: Imaging protocol: Computed tomography of the head without contrast. Radiation optimization: All CT scans at this facility use at least one of these dose optimization techniques: automated exposure control; mA and/or kV adjustment per patient size (includes targeted exams where dose is matched to clinical indication); or iterative reconstruction. 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 This is unchanged. No evidence of a new large territorial infarct. No intraparenchymal hemorrhage. No subdural or epidural hematoma or fluid collection. Areas of mild decreased density within the subcortical deep white matter within the anterior high right parietal lobe is unchanged. Findings are nonspecific and more in keeping with chronic microvascular ischemic change. No new areas of abnormal density within the brain. Cerebral ventricles: Ventricular and sulcal pattern is within normal limits. Ventricles are midline in position. No mass effect or midline shift. Paranasal sinuses: Visualized portion of the paranasal sinuses are essentially clear. Ximena bullosa is present on the right. Mastoid air cells: Mastoid air cells are clear. Bones: The calvarium is intact. No depressed or displaced skull fracture. No suspicious bone lesion. Soft tissues: Unremarkable. Vasculature: Minimal peripheral atherosclerotic plaque along the intracranial segment of the right and left internal carotid artery. Other findings: Overlying soft tissues appear unremarkable. IMPRESSION: 1. No acute findings within the brain. 2. Ventricular and sulcal pattern is within normal limits. Area of lucency within the anterolateral aspect of the left cerebellar hemisphere may correspond to sequela of old infarct or prominent sulcus. This is unchanged. No CT evidence for a new large territorial infarct. No intraparenchymal hemorrhage. No subdural or epidural hematoma or fluid collection. No large mass or mass effect. Evaluation for a subtle metastatic lesion is limited with noncontrast CT scan of the brain. If there is clinical concern for metastatic disease, follow-up MRI of the brain with intravenous contrast could be considered.
--- NOTE | 2025-05-04 16:54 | CT_ITS ---
PROCEDURE INFORMATION: Exam: CTA Chest With Contrast Exam date and time: 05/04/2025 6:09 PM Age: 49 years old Clinical indication: Pain; Other: Tachycardic; Chest pressure; Additional info: Chest pain, tachycardic TECHNIQUE: Imaging protocol: Computed tomographic angiography of the chest with contrast. Exam focused on the arteries. 3D rendering (Not supervised by radiologist): MIP and/or 3D reconstructed images were created by the technologist. Radiation optimization: All CT scans at this facility use at least one of these dose optimization techniques: automated exposure control; mA and/or kV adjustment per patient size (includes targeted exams where dose is matched to clinical indication); or iterative reconstruction. Contrast material: ISO 370; Contrast volume: 80 ml; Contrast route: INTRAVENOUS (IV); COMPARISON: CT ANGIO CHEST PE PROTOCOL 04/06/2025 10:40 PM FINDINGS: Pulmonary arteries: The pulmonary arteries enhance appropriately with no evidence of pulmonary embolism. Aorta: No aortic aneurysm or dissection. No mediastinal hematoma. Thyroid: Prior right thyroid lobectomy. Left lobe is normal. Lungs: Mild bilateral bronchial wall thickening consistent with bronchitis or bronchial edema. No bronchiectasis. No bronchial occlusions. No gross pulmonary infiltrates or edema pattern. Mild atelectasis in the lung bases. No pulmonary mass lesions are identified. Pleural spaces: No pleural effusion. No pneumothorax. Heart: Heart size normal. No pericardial effusion. Coronary arteries: No coronary artery calcification. Esophagus: The esophagus is largely contracted but demonstrates no gross abnormality. Lymph nodes: No supraclavicular or axillary adenopathy. Left axillary surgical clips noted. No mediastinal or hilar adenopathy. Stomach: Visualized upper abdominal structures are unremarkable. Bones/joints: No acute osseous abnormalities. Mild thoracic spondylosis. Soft tissues: No acute soft tissue abnormalities. Prior left mastectomy. IMPRESSION: 1. No evidence of pulmonary embolism or aortic dissection. 2. Mild bilateral bronchial wall thickening consistent with bronchitis or bronchial edema. No pulmonary infiltrates. 3. Additional nonemergent findings detailed above.
--- NOTE | 2025-05-04 17:03 | ECG_ITS ---
APPROVED REPORT Exam: Resting ECG HR:102 bpm ECG Measurements Heart Rate 102 AXES NJ 206 P 85 QRSd 80 QRS 95 QT 313 T 75 QTc 372 Conclusion EKG showed sinus tachycardia, some artifact but no acute ST or T wave changes concerning for ischemia Electronically signed by : Divya Rodriguez, 05/05/2025 01:57:55
--- NOTE | 2025-05-04 17:22 | PC.NURSE ---
patient informed of need for urine specimen, states she will let staff know when she can provide one.
[2025-05-04 17:32] LABS: Hematocrit 42.6 % (37.0-47.0); Hemoglobin 13.8 g/dL (12.2-16.2); Immature Granulocytes % 0.4 %; Mean Corpuscular HGB Conc 32.4 g/dL (31.8-35.4); Mean Corpuscular Hemoglobin 28.7 pg (27.0-31.2); Mean Corpuscular Volume 88.6 fl (81-99); Nucleated Red Blood Cells % 0 %; Platelet Count 283 K/mm3 (142-424); Red Blood Count 4.81 M/mm3 (4.20-5.40); Red Cell Distribution Width-SD 43.9 fL; White Blood Count 9.5 K/mm3 (4.8-10.8)
[2025-05-04 17:47] LABS: Alanine Aminotransferase 17 U/L (12-78); Albumin Level 4.4 g/dl (3.5-5.0); Albumin/Globulin Ratio 1.6 (1.1-1.8); Alkaline Phosphatase 79 U/L (38-126); Anion Gap 12.2 mEq/L (5-15); Aspartate Amino Transferase 28 U/L (14-36); Bilirubin,Total 0.4 mg/dl (0.2-1.3); Blood Urea Nitrogen 17 mg/dl (7-17); Calcium 9.8 mg/dl (8.4-10.2); Carbon Dioxide 30 mmol/L (22.0-30.0); Chloride 101 mmol/L (98-107); Creatinine Clearance Estimated 69 mL/min (50-200); Creatinine,Serum 0.80 mg/dl (0.52-1.04); Estimated Glomerular Filt Rate 76 ml/min (>60); GFR (African American) 92 ML/MIN (>60); Globulin 2.8 g/dL (1.3-3.2); Glucose 105 mg/dl (74-100); Lipase 75 U/L (23-300); Magnesium 1.9 mg/dl (1.6-2.3); Potassium 4.2 mmoL/L (3.5-5.1); Sodium 139 mmol/L (136-145); Total Protein,Serum 7.2 g/dl (6.3-8.2)
[2025-05-04] MEDS: ONDANSETRON 4MG/2ML VIAL 4 MG IV (17:47)
[2025-05-04 18:02] LABS: Microscopic, Urine URINE MICROSCOPIC (MICROSCOPIC)
[2025-05-04 18:07] LABS: Bilirubin,Urine Negative (Negative); Color,Urine YELLOW (Yellow); Glucose,Urine (UA) Negative (Negative); Ketones,Urine Negative (Negative); Leukocyte Esterase,Urine TRACE (Negative); PH,Urine 6.0 (5.0-8.5); Protein,Urine Negative (Negative); Specific Gravity, Urine 1.010 (1.005-1.030); Urobilinogen,Urine 0.2 EU/dl (0.2)
[2025-05-04] MEDS: 0.9 % SODIUM CHLORIDE 50 ML VIAL IV (18:10)
[2025-05-04] MEDS: SODIUM CHLORIDE 0.9% 10ML SYR (RAD ONLY) 10 ML IV (18:10)
[2025-05-04] MEDS: IOPAMIDOL-370 (76%);100ML BOTTLE 80 ML IV (18:10)
[2025-05-04 18:28] LABS: Troponin I < 0.01 ng/ml (0.00-0.034)
[2025-05-04 18:30] LABS: Amorphous Sediment,Urine 1+ /lpf; Bacteria,Urine 1+ /lpf; Mucus,Urine 1+ /lpf; WBC,Urine 50-100 #/hpf (0-3)
[2025-05-04 18:44] LABS: Amphetamine/Metha Screen,Urine Negative ng/ml (<1000)
[2025-05-04 18:45] LABS: Barbiturates Screen,Urine Negative ng/ml (<200)
[2025-05-04 18:46] LABS: Benzodiazepines Screen,Urine Negative ng/ml (<200)
[2025-05-04 18:47] LABS: Methadone Screen,Urine Negative ng/ml (<300)
[2025-05-04 18:48] LABS: Opiate Screen,Urine Positive ng/ml (<300)
[2025-05-04 18:49] LABS: Phencyclidine Screen,Urine Negative ng/ml (<25)
[2025-05-04] MEDS: PROCHLORPERAZINE 10MG/2ML VIAL 5 MG IV (19:58)
[2025-05-04] MEDS: ACETAMINOPHEN 500MG TAB 1000 MG PO (19:58)
[2025-05-04] MEDS: KETOROLAC 30MG/ML VIAL 30 MG IV (19:58)
--- NOTE | 2025-05-04 20:30 | PC.NURSE ---
PT noted to have a black straw in bed with her. This nurse put a glove on and threw said straw away. PT stated it was a ecig that she was using. PT went threw trash and got straw out of trash.
== END 2025-05-04 20:31 | disposition home or self-care (01) ==
PROVIDERS: Emergency Provider Student in an Organized Health Care Education/Training Program
DX: N39.0 Urinary tract infection, site not specified (principal); R00.0 Tachycardia, unspecified; F11.10 Opioid abuse, uncomplicated; R25.1 Tremor, unspecified; K86.2 Cyst of pancreas; K83.8 Other specified diseases of biliary tract; E27.9 Disorder of adrenal gland, unspecified; F17.210 Nicotine dependence, cigarettes, uncomplicated
CPT/HCPCS: 70450; 71275; 74177; 80053; 80307; 81001; 83690; 83735; 84484; 85025; 87086; 93005; 96365; 96366; 96375; 99285; J0696; J0780; J1885; J2405; Q9967